=== PATIENT | female | born 1970 | race Caucasian/White ===

== ENCOUNTER 2020-12-03 12:19 | Inpatient (IN) | payer MEDICARE, OTHER ==
[2020-12-03 12:44] LABS: Basophils # (A) 0.1 k/uL (0-0.2); Basophils % (A) 1 %; Eosinophils # (A) 0.1 k/uL (0-0.7); Eosinophils % (A) 2 %; HCT 39.2 % (34.0-46.0); HGB 13.7 gm/dL (11.4-16.0); Lymphocytes # (A) 1.5 k/uL (1.0-4.8); Lymphocytes % (A) 24 %; MCH 29.7 pg (25.0-35.0); MCHC 34.9 g/dL (31.0-37.0); MCV 85.1 fL (80.0-100.0); Monocytes # (A) 0.3 k/uL (0-1.0); Monocytes % (A) 5 %; Neutrophils # (A) 4.3 k/uL (1.3-7.7); Neutrophils % (A) 67 %; Platelet Count 253 k/uL (150-450); RDW 14.1 % (11.5-15.5); WBC 6.4 k/uL (3.8-10.6)
[2020-12-03 12:53] LABS: ALT 13 U/L (4-34); AST 18 U/L (14-36); African American GFR (CKD) >90 (>60 ml/min/1.73 sqM); Albumin 3.7 g/dL (3.5-5.0); Alkaline Phosphatase 77 U/L (38-126); Anion Gap 5 mmol/L; Blood Urea Nitrogen 9 mg/dL (7-17); Calcium 9.2 mg/dL (8.4-10.2); Carbon Dioxide 27 mmol/L (22-30); Chloride 107 mmol/L (98-107); Glucose 84 mg/dL (74-99); Lipase 135 U/L (23-300); Magnesium 1.2 mg/dL (1.6-2.3); Non-African American GFR(CKD) >90 (>60 ml/min/1.73 sqM); Potassium 4.1 mmol/L (3.5-5.1); Sodium 139 mmol/L (137-145); Total Bilirubin 0.3 mg/dL (0.2-1.3); Total Protein 6.2 g/dL (6.3-8.2)
[2020-12-03 13:00] LABS: Partial Thromboplastin Time 24.3 sec (22.0-30.0); Prothrombin Time 10.3 sec (9.0-12.0)
--- NOTE | 2020-12-03 13:05 | XR ---
EXAMINATION TYPE: XR chest 2V DATE OF EXAM: 12/03/2020 COMPARISON: NONE TECHNIQUE: PA and lateral views submitted. HISTORY: Chest pain FINDINGS: Surgical change with on no evidence of cardiomegaly. There is vague density in the right upper lobe l aterally. No pleural effusion or pneumothorax. Arthropathy of the shoulders. Hypertrophic and degener ative change of the spine. IMPRESSION: 1. Vague right upper lobe infiltrate suspected correlate for pneumonia.
--- NOTE | 2020-12-03 13:25 | ED ---
Chest Pain HPI - General Chief Complaint: Chest Pain Stated Complaint: chest pain Source: EMS Mode of arrival: EMS Limitations: no limitations - History of Present Illness Initial Comments: Patient is a 50-year-old female who presents to the emergency department with reported chest pain. Patient has a history of CABG x 4 in 2013 with 5 stents placed afterwards. She also has a history of diabetes and cocaine abuse. Patient reports a heavy cocaine abuse over the past 3 weeks. States that she stopped taking her Plavix and other heart medications. She decided to check herself into rehab and has been at [facility] for the past 5 days. Today the patient had an episode of chest pain for which she was given one of her nitro and the pain resolved. Normally reports to anginal pain once per month. As she was at the facility they did request that she going to the emergency department for evaluation. She arrives and states that her pain is completely resolved. It was described as a chest pressure which went into her left arm. This is typical of her chest pain. She denies any shortness of breath or diaphoresis. 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 She sees Dr. Villanueva out of [facility]. She denies cough, fevers or chills. No ripping or tearing physician or back. No bowel pain. Denies vomiting. No other alleviating, precipitating or modifying factors - Related Data Home Medications Medication Instructions Recorded Confirmed ARIPiprazole [Abilify] 15 mg PO HS@219912/03/20 12/03/20 Acetaminophen [Tylenol] 650 mg PO Q4H PRN 12/03/20 12/03/20 Albuterol Sulfate [Proair Hfa] 2 puff INHALATION RT-Q4H PRN 12/03/20 12/03/20 Aspirin 81 mg PO DAILY@59912/03/20 12/03/20 Atorvastatin [Lipitor] 40 mg PO HS@219912/03/20 12/03/20 Calcium/Magnesium/Zinc 2 tab PO TID PRN 12/03/20 12/03/20 [Dwaqrah-Ijrsuijez-Wrmz Tablet] Clopidogrel Bisulfate [Plavix] 75 mg PO DAILY@59912/03/20 12/03/20 Ferrous Sulfate [Iron (65 MG 325 mg PO DAILY@59912/03/20 12/03/20 Elemental)] Fluticasone Nasal [place] [Flonase 1 spr EA NOSTRIL DAILY PRN 12/03/20 12/03/20 Nasal [place]] Isosorbide Mononitrate ER [Imdur] 30 mg PO DAILY@0600 12/03/20 12/03/20 Losartan [Cozaar] 50 mg PO DAILY@0600 12/03/20 12/03/20 Multivitamins, Thera [Multivitamin 1 tab PO DAILY@0600 12/03/20 12/03/20 (formulary)] Nitroglycerin Sl Tabs [Nitrostat] 0.4 mg SL Q5M PRN 12/03/20 12/03/20 Thiamine [Vitamin B-1] 100 mg PO DAILY@0600 12/03/20 12/03/20 buPROPion HCL [Wellbutrin XL] 150 mg PO DAILY@0600 12/03/20 12/03/20 metFORMIN HCL 1,000 mg PO BID@0600,1700 12/03/20 12/03/20 Allergies Allergy/AdvReac Type Severity Reaction Status Date / Time phenobarbital AdvReac Hyper Verified 12/03/20 13:35 Review of Systems ROS Statement: Those systems with pertinent positive or pertinent negative responses have been documented in the HPI. ROS Other: All systems not noted in ROS Statement are negative. EKG Findings - EKG Comments: EKG Findings:: Chest x-ray demonstrates normal sinus rhythm with a ventricular rate of 82. WA interval 144. QRS 90. QTC of 474. Inverted T-wave in aVL. No acute ST segment elevations Past Medical History Past Medical History: Chest Pain / Angina, Diabetes Mellitus Additional Past Medical History / Comment(s): DM2. History of Any Multi-Drug Resistant Organisms: None Reported Past Surgical History: Coronary Bypass/CABG, Heart Catheterization, Heart Catheterization With Stent, Orthopedic Surgery Additional Past Surgical History / Comment(s): bypass 2013, last stent 2016. right carpal tunnel. Past Psychological History: Anxiety, Bipolar Smoking Status: Current every day smoker Past Alcohol Use History: None Reported Past Drug Use History: None Reported - Past Family History Father Additional Family Medical History / Comment(s): Father had heart "problems". He is . Mother Family Medical History: Coronary Artery Disease (CAD) Additional Family Medical History / Comment(s): Mother during a heart procedure. General Exam Limitations: no limitations General appearance: alert, in no apparent distress Head exam: Present: atraumatic, normocephalic, normal inspection Eye exam: Present: normal appearance, PERRL, EOMI. Absent: scleral icterus, conjunctival injection, periorbital swelling ENT exam: Present: normal exam, mucous membranes moist Neck exam: Present: normal inspection. Absent: tenderness, meningismus, lymphadenopathy Respiratory exam: Present: normal lung sounds bilaterally. Absent: respiratory distress, wheezes, rales, rhonchi, stridor Cardiovascular Exam: Present: regular rate, normal rhythm, normal heart sounds. Absent: systolic murmur, diastolic murmur, rubs, gallop, clicks GI/Abdominal exam: Present: soft, normal bowel sounds. Absent: distended, tende rness, guarding, rebound, rigid Extremities exam: Present: normal inspection, full ROM, normal capillary refill. Absent: tenderness, pedal edema, joint swelling, calf tenderness Back exam: Present: normal inspection Neurological exam: Present: alert, oriented X3, CN II-XII intact Psychiatric exam: Present: normal affect, normal mood Skin exam: Present: warm, dry, intact, normal color. Absent: rash Course Vital Signs 12/03/20 12/03/20 12/03/20 12:21 15:49 16:00 Temperature 98.3 F 97.3 F L Pulse Rate 89 98 Pulse Rate [ 97 Pulse Oximetery ] Respiratory 18 18 16 Rate Blood Pressure 108/88 118/64 Blood Pressure 121/74 [Right Arm] O2 Sat by Pulse 97 98 96 Oximetry Chest Pain MDM - MDM Upon arrival patient is placed in room 27. There are history and physical exam was performed. She is to continuous pulse ox and cardiac monitoring. EKG was performed. Patient is completely symptomatically at this time. Laboratory studies were conducted which do demonstrate an elevated troponin of 0.045. Patient was given an aspirin. I also initiated heparin. Patient has no contraindications to anticogulation. I did recommend admission due to the elevated cardiac enzymes with significant cardiac history. Patient did agree to this. Patient remained pain-free awaiting a bed on the floor Critical Care Time Critical Care Time: Yes Critical Care Time: 32 minutes for initiation of heparin gtt for nstemi Disposition Clinical Impression: Acute non-ST elevation myocardial infarction (NSTEMI), Chest pain, CAD (coronary artery disease), Hx of CABG Disposition: ADMITTED IP TO THIS HOSP Condition: Stable Is patient prescribed a controlled substance at d/c from ED?: No Decision to Admit Reason: Admit from EC Decision Date: 12/03/20 Decision Time: 14:17
[2020-12-03] MEDS ORDERED: ASPIRIN 81 MG PO STA (14:09)
[2020-12-03] MEDS ORDERED: HEPARIN SODIUM 1,000 UN/ML (10ML VL) IV ONE (14:17)
[2020-12-03] MEDS ORDERED: HEPARIN SODIUM 1,000 UN/ML (10ML VL) IV PRN (14:17)
[2020-12-03] MEDS ORDERED: NALOXONE 0.4 MG/ML 1 ML VIAL IV PRN (14:20)
[2020-12-03] MEDS ORDERED: HEPARIN SOD,PORK IN 0.45% NACL 25,000 UNIT in 0.45% NACL 1 250ML.BAG IV SCH (14:30)
[2020-12-03] MEDS ORDERED: ALBUTEROL NEBULIZED 2.5 MG/3 ML INHALATION PRN (15:38)
[2020-12-03] MEDS ORDERED: ACETAMINOPHEN TAB 325 MG TAB PO PRN (15:38)
[2020-12-03] MEDS ORDERED: FLUTICASONE 50MCG/SPRAY NASAL 16GM EA NOSTRIL PRN (15:38)
--- NOTE | 2020-12-03 15:44 | P.HPIM ---
History of Present Illness H&P Date: 12/03/20 Chief Complaint: Heaviness in the chest This is a 50-year-old female with past medical history noted below significant for coronary artery disease with prior stent placement 2 years ago that presented to the emergency room from [place] with chest heaviness. Patient said that her symptoms started all of a sudden when she was walking around. She said that he was not severe chest pain but only tightness. She denies any shortness of breath or palpitation. No nausea or dizziness. Patient was brought into the emergency room a 12-lead EKG showed no acute ischemic changes. Initial troponin was slightly elevated so patient was started on IV heparin drip and admitted to the hospital for observation. Patient admits that she was using crack cocaine up until 5 days ago prior to her going to [place]. She missed a lot of her medications in the past 3 weeks. She said now she understands the risk of cocaine and would like to get clean. She reported having a heart attack approximately 3 years ago that was treated at [facility] in [place] and underwent 5 stent placements. She continued to smoke cigarettes. Review of Systems Review of system: 14 points review of systems were obtained and were negative except to what were mentioned in the HPI. Past Medical History Past Medical History: Chest Pain / Angina, Diabetes Mellitus Additional Past Medical History / Comment(s): DM2. History of Any Multi-Drug Resistant Organisms: None Reported Past Surgical History: Coronary Bypass/CABG, Heart Catheterization, Heart Catheterization With Stent, Orthopedic Surgery Additional Past Surgical History / Comment(s): bypass 2013, last stent 2016. right carpal tunnel. Past Psychological History: Anxiety, Bipolar Smoking Status: Current every day smoker Past Alcohol Use History: None Reported Past Drug Use History: None Reported Medications and Allergies Home Medications Medication Instructions Recorded Confirmed Type ARIPiprazole [Abilify] 15 mg PO HS@0 12/03/20 12/03/20 History Acetaminophen [Tylenol] 650 mg PO Q4H PRN 12/03/20 12/03/20 History Albuterol Sulfate [Proair Hfa] 2 puff INHALATION RT-Q4H PRN 12/03/20 12/03/20 Hi story Aspirin 81 mg PO DAILY@0600 12/03/20 12/03/20 History Atorvastatin [Lipitor] 40 mg PO HS@0 12/03/20 12/03/20 History Calcium/Magnesium/Zinc 2 tab PO TID PRN 12/03/20 12/03/20 History [Bhyjmpm-Mjhskrbgr-Xyex Tablet] Chlorpheniramine Maleate 4 mg PO Q4H PRN 12/03/20 12/03/20 History [Chlor-Trimeton] Clopidogrel Bisulfate [Plavix] 75 mg PO DAILY@0600 12/03/20 12/03/20 History Ferrous Sulfate [Feosol] 325 mg PO DAILY@59912/03/20 12/03/20 History Fluticasone Nasal [place] [Flonase 1 spr EA NOSTRIL DAILY PRN 12/03/20 12/03/20 History Nasal [place]] Ibuprofen [Motrin] 600 mg PO Q6H PRN 12/03/20 12/03/20 History Isosorbide Mononitrate ER [Imdur] 30 mg PO DAILY@0612/03/20 12/03/20 History Loratadine [Claritin] 10 mg PO DAILY@0612/03/20 12/03/20 History Losartan [Cozaar] 50 mg PO DAILY@0612/03/20 12/03/20 History Multivitamins, Thera [Multivitamin 1 tab PO DAILY@0612/03/20 12/03/20 History (formulary)] Nitroglycerin Sl Tabs [Nitrostat] 0.4 mg SL Q5M PRN 12/03/20 12/03/20 History Thiamine [Vitamin B-1] 100 mg PO DAILY@0600 12/03/20 12/03/20 History Venlafaxine HCl [Effexor XR] 150 mg PO DAILY@0612/03/20 12/03/20 History buPROPion HCL [Wellbutrin XL] 150 mg PO DAILY@0600 12/03/20 12/03/20 History metFORMIN HCL 1,000 mg PO BID@0600,1700 12/03/20 12/03/20 History traZODone HCL 100 mg PO HS@2200 12/03/20 12/03/20 History Allergies Allergy/AdvReac Type Severity Reaction Status Date / Time phenobarbital AdvReac Hyper Verified 12/03/20 13:35 Physical Exam Vitals: Vital Signs Temp Pulse Resp BP Pulse Ox 12/03/20 12:21 98.3 F 89 18 108/88 97 Intake and Output 12/03/20 12/03/20 12/03/20 06:59 14:59 22:59 Other: Weight 72.575 kg General: The patient is awake and alert, in no distress Eye: there is normal conjunctiva bilaterally. Neck: The neck is supple, there is no JVD. Cardiovascular: Normal S1-S2, no S3-S4, no murmurs. Respiratory: Lungs clear to auscultation bilaterally Gastrointestinal: Abdomen is soft, nontender Musculoskeletal: There is no pedal edema. Neurological:. Speech is normal. Skin: Skin is warm and dry Results CBC & Chem 7: 12/03/20 12:36 12/03/20 12:36 Labs: Abnormal Lab Results - Last 24 Hours (Table) 12/03/20 12/03/20 Range/Units 12:36 12:36 Magnesium 1.2 L (1.6-2.3) mg/dL Troponin I 0.045 H* (0.000-0.034) ng/mL Total Protein 6.2 L (6.3-8.2) g/dL Assessment and Plan Assessment: 1. Non-ST elevation SD, started on IV heparin drip in the ER. Continue dual antiplatelet therapy with aspirin and Plavix. Awaiting cardiology evaluation. Telemetry monitoring and serial troponin. 2. Cocaine abuse: Counseled extensively to quit. Patient understands the r isks. 3. Chronic medical problems, coronary artery disease with prior stent placement, essential hypertension, type 2 diabetes, hyperlipidemia, underlying depression
[2020-12-03 17:03] LABS: Glucose,Whole Blood 119 mg/dL (75-99)
[2020-12-03] MEDS: INSULIN ASPART (NovoLOG) 100 UNIT/ML VIAL SQ SCH ×2 (17:28→20:01)
[2020-12-03 19:57] LABS: Glucose,Whole Blood 136 mg/dL (75-99)
[2020-12-03] MEDS: MAGNESIUM SULFATE-D5W PMX 1 GM in DEXTROSE/WATER 1 100ML.BAG IVPB SCH ×2 (20:01→21:30)
[2020-12-03] MEDS ORDERED: traZODone HCL 100 MG TAB PO SCH (22:00)
[2020-12-03] MEDS ORDERED: ATORVASTATIN 40 MG TAB PO SCH (22:00)
[2020-12-03] MEDS ORDERED: ARIPiprazole 15 MG TAB PO SCH (22:00)
[2020-12-04 00:14] VITALS: RESP 16
[2020-12-04 02:00] LABS: Basophils # (A) 0.1 k/uL (0-0.2); Basophils % (A) 1 %; Eosinophils # (A) 0.2 k/uL (0-0.7); Eosinophils % (A) 3 %; HGB 13.6 gm/dL (11.4-16.0); Lymphocytes # (A) 1.9 k/uL (1.0-4.8); Lymphocytes % (A) 38 %; MCH 29.6 pg (25.0-35.0); MCHC 34.9 g/dL (31.0-37.0); Monocytes # (A) 0.3 k/uL (0-1.0); Monocytes % (A) 5 %; Neutrophils # (A) 2.6 k/uL (1.3-7.7); Neutrophils % (A) 52 %; Platelet Count 222 k/uL (150-450); RBC 4.59 m/uL (3.80-5.40)
[2020-12-04] MEDS ORDERED: THIAMINE 100 MG TAB PO SCH (06:00)
[2020-12-04] MEDS ORDERED: ISOSORBIDE MONONITRATE ER 30 MG TAB.ER.24H PO SCH (06:00)
[2020-12-04] MEDS ORDERED: FERROUS SULFATE 325 MG TAB PO SCH (06:00)
[2020-12-04] MEDS ORDERED: CLOPIDOGREL 75 MG TAB PO SCH (06:00)
[2020-12-04] MEDS ORDERED: LOSARTAN 50 MG TAB PO SCH (06:00)
[2020-12-04] MEDS ORDERED: VENLAFAXINE HCL ER 150 MG CAP PO SCH (06:00)
[2020-12-04] MEDS ORDERED: buPROPion XL 150 MG TAB.ER.24H PO SCH (06:00)
[2020-12-04 06:10] LABS: Glucose,Whole Blood 134 mg/dL (75-99)
[2020-12-04] MEDS: INSULIN ASPART (NovoLOG) 100 UNIT/ML VIAL SQ SCH (06:23)
[2020-12-04 06:26] LABS: African American GFR (CKD) >90 (>60 ml/min/1.73 sqM); Anion Gap 4 mmol/L; Blood Urea Nitrogen 8 mg/dL (7-17); Carbon Dioxide 27 mmol/L (22-30); Chloride 106 mmol/L (98-107); Glucose 135 mg/dL (74-99); Magnesium 1.7 mg/dL (1.6-2.3); Non-African American GFR(CKD) >90 (>60 ml/min/1.73 sqM); Potassium 4.2 mmol/L (3.5-5.1); Sodium 137 mmol/L (137-145)
[2020-12-04 06:37] LABS: INR 0.9 (<1.2); Partial Thromboplastin Time 41.5 sec (22.0-30.0)
[2020-12-04 07:43] VITALS: TEMP 97.6
[2020-12-04] MEDS ORDERED: ASPIRIN 81 MG PO SCH (09:00)
--- NOTE | 2020-12-04 11:47 | P.DS ---
Providers Date of admission: 12/04/20 10:35 Expected date of discharge: 12/04/20 Attending physician: Fer Shannon Consults: 12/03/20 14:21 Consult Physician Urgent Consulting Provider: [facility] Consult Reason/Comments: acute chest pain, nstemi, hx cad with cabg Do you want consulting provider notified?: Yes Primary care physician: Physician Nonstaff Hospital Course: This is a 50-year-old female with past medical history detailed in her chart significant for coronary artery disease with prior stent placement, essential hypertension, type 2 diabetes, and hyperlipidemia. Patient presented to the emergency room with chest heaviness. Patient uses crack cocaine and last time of use was 5 days prior to her presentation. She was at [facility] for rehab when she had an episode of chest heaviness and was sent to the ER for further evaluation. Twelve-lead EKG in the ER showed no acute ischemic changes. Initial troponin was 0.41 patient was treated as a non-STEMI with IV heparin. She is on the left antiplatelet therapy at home. Serial troponin remained stable. She was seen and evaluated by cardiology. Her chest pain was thought to be atypical in nature. Advised to continue aggressive medical management. Counseled extensively to quit cocaine use. Cleared by cardiology for discharge. Patient will be discharged back to [facility] in a stable condition. For further details about this hospitalization please refer to the electronic chart. Patient Condition at Discharge: Stable Plan - Discharge Summary Discharge Rx Participant: No New Discharge Prescriptions: Continue Albuterol Sulfate [Proair Hfa] 2 puff INHALATION RT-Q4H PRN PRN Reason: Shortness Of Breath Nitroglycerin Sl Tabs [Nitrostat] 0.4 mg SL Q5M PRN PRN Reason: Chest Pain Losartan [Cozaar] 50 mg PO DAILY@0600 Aspirin 81 mg PO DAILY@0600 Atorvastatin [Lipitor] 40 mg PO HS@2200 ARIPiprazole [Abilify] 15 mg PO HS@2200 Ferrous Sulfate [Iron (65 MG Elemental)] 325 mg PO DAILY@0600 Multivitamins, Thera [Multivitamin (formulary)] 1 tab PO DAILY@0600 Fluticasone Nasal [place] [Flonase Nasal [place]] 1 spr EA NOSTRIL DAILY PRN PRN Reason: Allergy Symptoms Calcium/Magnesium/Zinc [Nkjruaf-Jpmrbfxhl-Flqn Tablet] 2 tab PO TID PRN PRN Reason: Muscle Cramps Acetaminophen [Tylenol] 650 mg PO Q4H PRN PRN Reason: Fever And/ Or Pain Isosorbide Mononitrate ER [Imdur] 30 mg PO DAILY@0600 Clopidogrel Bisulfate [Plavix] 75 mg PO DAILY@0600 metFORMIN HCL 1,000 mg PO BID@0600,1700 buPROPion HCL [Wellbutrin XL] 150 mg PO DAILY@0600 Thiamine [Vitamin B-1] 100 mg PO DAILY@0600 Discontinued Ibuprofen [Motrin] 600 mg PO Q6H PRN PRN Reason: Fever And/ Or Pain Chlorpheniramine Maleate [Chlor-Trimeton] 4 mg PO Q4H PRN PRN Reason: Allergy Symptoms Loratadine [Claritin] 10 mg PO DAILY@0600 traZODone HCL 100 mg PO HS@220 Venlafaxine HCl [Effexor XR] 150 mg PO DAILY@0600 Discharge Medication List ARIPiprazole [Abilify] 15 mg PO HS@219912/03/20 [History] Acetaminophen [Tylenol] 650 mg PO Q4H PRN 12/03/20 [History] Albuterol Sulfate [Proair Hfa] 2 puff INHALATION RT-Q4H PRN 12/03/20 [History] Aspirin 81 mg PO DAILY@59912/03/20 [History] Atorvastatin [Lipitor] 40 mg PO HS@219912/03/20 [History] Calcium/Magnesium/Zinc [Zzvlqbz-Jttpisslr-Ybxf Tablet] 2 tab PO TID PRN 12/03/20 [History] Clopidogrel Bisulfate [Plavix] 75 mg PO DAILY@59912/03/20 [History] Ferrous Sulfate [Iron (65 MG Elemental)] 325 mg PO DAILY@59912/03/20 [History] Fluticasone Nasal [place] [Flonase Nasal [place]] 1 spr EA NOSTRIL DAILY PRN 12/03/20 [History] Isosorbide Mononitrate ER [Imdur] 30 mg PO DAILY@59912/03/20 [History] Losartan [Cozaar] 50 mg PO DAILY@0612/03/20 [History] Multivitamins, Thera [Multivitamin (formulary)] 1 tab PO DAILY@59912/03/20 [H istory] Nitroglycerin Sl Tabs [Nitrostat] 0.4 mg SL Q5M PRN 12/03/20 [History] Thiamine [Vitamin B-1] 100 mg PO DAILY@0600 12/03/20 [History] buPROPion HCL [Wellbutrin XL] 150 mg PO DAILY@0600 12/03/20 [History] metFORMIN HCL 1,000 mg PO BID@0600,1700 12/03/20 [History] Follow up Appointment(s)/Referral(s): Nonstaff,Physician [Primary Care Provider] - 1-2 days Activity/Diet/Wound Care/Special Instructions: Please call [facility] for transport back at d/c . Discharge Disposition: HOME SELF-CARE
[2020-12-04 12:16] LABS: Glucose,Whole Blood 115 mg/dL (75-99)
[2020-12-04 13:04] VITALS: BP 136/75; PULSE 90
--- NOTE | 2020-12-04 14:58 | P.CRDCN ---
History of Present Illness History of present illness: This is a 50-year-old female with past medical history noted below significant for two myocardial infarctions, coronary artery disease with prior 4 vessel CABG in 2014 and with prior 5 stents placements in 2017, Type 2 Diabetes, hypertension, hyperlipidemia, prior substance abuse (cocaine), current every day smoker, smokes 1 pack per day. She follows with Dr. Ellsworth in [place]. We are being consulted for chest pain and elevated troponin. She presents to the emergency room from [place] with chest heaviness. Symptoms started yesterday started at 4pm. Exertional. Radiating to her left arm. She was walking up the stairs. She denies shortness of breath, nausea, palpitations, lower exremity edema, symptoms of orthopnea or PND. She has a family history of cardiac disease mother of an [place] in her 60s, and father of an [place] at age 79. DIAGNOSTICS EKG reveals normal sinus rhythm heart rate 82 T wave inversions in aVL and V2, no significant STT wave abnormalities Telemetry tracings indicate sinus mechanism Chest xray right upper lobe infiltrate Laboratory reviewed, troponins 0.43, CBC unremarkable, sodium 137, potassium 4.2, serum creatinine 0.5 to Current cardiac medications include losartan 50 mg daily, Imdur 30 mg daily, Plavix 75 mg daily, atorvastatin 40 mg nightly, aspirin 81 mg daily REVIEW OF SYSTEMS At the time of my exam: CONSTITUTIONAL: Denies fever or chills. CARDIOVASCULAR: Positive chest pain Denies chest pain,orthopnea, PND or palpitations. RESPIRATORY: Denies cough. GASTROINTESTINAL: Denies abdominal pain, diarrhea, constipation, nausea or vom iting. MUSCULOSKELETAL: Denies myalgias. NEUROLOGIC: Denies numbness, tingling, headacbe or weakness. ENDOCRINE: Denies fatigue, weight change, polydipsia or polyurina. GENITOURINARY: Denies burning, hematuria or urgency with micturation. HEMATOLOGIC: Denies history of anemia or bleeding. PHYSICAL EXAMINATION Blood pressure 143/82 heart rate 98 afebrile and maintaining oxygen saturation on []. CONSTITUTIONAL: No apparent distress. HEENT: Head is normocephalic. Pupils are equal, round. Sclerae anicteric. Mucous membranes of the mouth are moist. No JVD. No carotid bruit. CHEST EXAMINATION: Lungs are clear to auscultation. No chest wall tenderness is noted on palpation or with deep breathing. HEART EXAMINATION: Regular rate and rhythm. S1, S2 heard. No murmurs, gallops or rub. ABDOMEN: Soft, nontender. Positive bowel sounds. EXTREMITIES: 2+ peripheral pulses, no lower extremity edema and no calf tenderness. NEUROLOGIC EXAMINATION: Patient is awake, alert and oriented x3. ASSESSMENT Chest pain, atypical Elevated troponin, not indicative of acute coroanry syndrome. Troponins are 0.04 x 3, patient has no more chest discomfort. 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 Patient was seen and examined. Past Medical History Past Medical History: Coronary Artery Disease (CAD), Chest Pain / Angina, Diabetes Mellitus Additional Past Medical History / Comment(s): NIDDM type II History of Any Multi-Drug Resistant Organisms: None Reported Past Surgical History: Coronary Bypass/CABG, Heart Catheterization, Heart Catheterization With Stent, Orthopedic Surgery Additional Past Surgical History / Comment(s): 4 vessel bypass 2013, PCI with last stent 2016. right carpal tunnel. Past Anesthesia/Blood Transfusion Reactions: No Reported Reaction Date of Last Stent Placement:: 2016 Smoking Status: Current every day smoker - Past Family History Father Additional Family Medical History / Comment(s): Father had heart "problems". He is . Mother Family Medical History: Coronary Artery Disease (CAD) Additional Family Medical History / Comment(s): Mother during a heart procedure. Medications and Allergies Home Medications Medication Instructions Recorded Confirmed Type ARIPiprazole [Abilify] 15 mg PO HS@219912/03/20 12/03/20 History Acetaminophen [Tylenol] 650 mg PO Q4H PRN 12/03/20 12/03/20 History Albuterol Sulfate [Proair Hfa] 2 puff INHALATION RT-Q4H PRN 12/03/20 12/03/20 History Aspirin 81 mg PO DAILY@0600 12/03/20 12/03/20 History Atorvastatin [Lipitor] 40 mg PO HS@219912/03/2021 History Calcium/Magnesium/Zinc 2 tab PO TID PRN 12/03/20 12/03/20 History [Jwzdvna-Csvhopzrk-Ymbf Tablet] Clopidogrel Bisulfate [Plavix] 75 mg PO DAILY@0600 12/03/20 12/03/20 History Ferrous Sulfate [Iron (65 MG 325 mg PO DAILY@0600 12/03/20 12/03/20 History Elemental)] Fluticasone Nasal [place] [Flonase 1 spr EA NOSTRIL DAILY PRN 12/03/20 12/03/20 History Nasal [place]] Isosorbide Mononitrate ER [Imdur] 30 mg PO DAILY@0600 12/03/20 12/03/20 History Losartan [Cozaar] 50 mg PO DAILY@0600 12/03/20 12/03/20 History Multivitamins, Thera [Multivitamin 1 tab PO DAILY@0600 12/03/20 12/03/20 History (formulary)] Nitroglycerin Sl Tabs [Nitrostat] 0.4 mg SL Q5M PRN 12/03/20 12/03/20 History Thiamine [Vitamin B-1] 100 mg PO DAILY@0600 12/03/20 12/03/20 History buPROPion HCL [Wellbutrin XL] 150 mg PO DAILY@0600 12/03/20 12/03/20 History metFORMIN HCL 1,000 mg PO BID@0600,1700 12/03/20 12/03/20 History Allergies Allergy/AdvReac Type Severity Reaction Status Date / Time phenobarbital AdvReac Hyper Verified 12/03/20 13:35 Physical Exam Vitals: Vital Signs Temp Pulse Pulse Resp BP BP Pulse Ox 12/04/20 04:00 80 16 143/82 98 12/04/20 00:00 96 16 151/91 97 12/03/20 20:00 97.8 F 112 H 18 160/65 95 12/03/20 16:00 97.3 F L 97 16 121/74 96 12/03/20 15:49 98 18 118/64 98 12/03/20 12:21 98.3 F 89 18 108/88 97 Intake and Output 12/03/20 12/04/20 12/04/20 22:59 06:59 14:59 Intake Total 299.947 65.679 Balance 299.947 65.679 Intake: Intake, IV Titration 59.947 65.679 Amount Heparin Sod,Pork in 0.45% 59.947 65.679 NaCl 25,000 unit In 0.45 % NaCl 1 250ml.bag @ 12 UNITS/KG/HR 8.709 mls/hr IV .Q24H [facility] Rx#: [id number] Oral 240 Other: Weight 72.575 kg 89.5 kg Results 12/04/20 01:49 12/04/20 05:34 Cardiac Enzymes 12/03/20 12/03/20 12/03/20 Range/Units 12:36 12:36 15:51 AST 18 (14-36) U/L Troponin I 0.045 H* 0.045 H* (0.000-0.034) ng/mL 12/03/20 Range/Units 18:25 AST (14-36) U/L Troponin I 0.041 H* (0.000-0.034) ng/mL Coagulation 12/03/20 12/03/20 12/04/20 Range/Units 12:36 20:42 01:49 PT 10.3 (9.0-12.0) sec APTT 24.3 30.8 H 37.7 H (22.0-30.0) sec 12/04/20 Range/Units 05:34 PT 10.0 (9.0-12.0) sec APTT 41.5 H (22.0-30.0) sec CBC 12/03/20 12/04/20 Range/Units 12:36 01:49 WBC 6.4 5.0 (3.8-10.6) k/uL RBC 4.60 4.59 (3.80-5.40) m/uL Hgb 13.7 13.6 (11.4-16.0) gm/dL Hct 39.2 39.0 (34.0-46.0) % Plt Count 253 222 (150-450) k/uL Comprehensive Metabolic Panel 12/03/20 12/04/20 Range/Units 12:36 05:34 Sodium 139 137 (137-145) mmol/L Potassium 4.1 4.2 (3.5-5.1) mmol/L Chloride 107 106 (98-107) mmol/L Carbon Dioxide 27 27 (22-30) mmol/L BUN 9 8 (7-17) mg/dL Creatinine 0.60 0.52 (0.52-1.04) mg/dL Glucose 84 135 H (74-99) mg/dL Calcium 9.2 9.0 (8.4-10.2) mg/dL AST 18 (14-36) U/L ALT 13 (4-34) U/L Alkaline Phosphatase 77 (38-126) U/L Total Protein 6.2 L (6.3-8.2) g/dL Albumin 3.7 (3.5-5.0) g/dL Current Medications Generic Name Dose Route Start Last Admin Trade Name Freq PRN Reason Stop Dose Admin Acetaminophen 650 mg 12/03/20 15:38 Acetaminophen Tab 325 Mg Tab PO Q4H PRN Fever and/ or Pain Albuterol Sulfate 2.5 mg 12/03/20 15:38 Albuterol Nebulized 2.5 Mg/3 Ml INHALATION RT-Q4H PRN Shortness Of Breath Aripiprazole 15 mg 12/03/20 22:00 12/03/20 20:01 Aripiprazole 15 Mg Tab PO 15 mg HS@2200 SHANNA Administration Aspirin 81 mg 12/04/20 09:00 Aspirin 81 Mg PO DAILY [facility] Atorvastatin Calcium 40 mg 12/03/20 22:00 12/03/20 20:01 Atorvastatin 40 Mg Tab PO 40 mg HS@2200 SHANNA Administration Bupropion HCl 150 mg 12/04/20 06:00 12/04/20 06:23 Bupropion Xl 150 Mg Tab.Er.24h PO 150 mg DAILY@0600 SHANNA Administration Clopidogrel Bisulfate 75 mg 12/04/20 06:00 12/04/20 06:23 Clopidogrel 75 Mg Tab PO 75 mg DAILY@0600 SHANNA Administration Ferrous Sulfate 325 mg 12/04/20 06:00 12/04/20 06:23 Ferrous Sulfate 325 Mg Tab PO 325 mg DAILY@0600 [facility] Administration Fluticasone Propionate 1 spray 12/03/20 15:38 Fluticasone 50mcg/[place] Nasal 16gm EA NOSTRIL DAILY PRN Allergy Symptoms Heparin Sodium (Porcine) 0 unit 12/03/20 14:17 12/03/20 21:31 Heparin Sodium 1,000 Un/Ml (10ml Vl) IV 3,600 unit PER PROTOCOL PRN Administration Low PTT Protocol Heparin Sodium/Sodium Chloride 250 mls @ 8.709 mls/hr 12/03/20 14:30 12/04/20 03:26 25,000 unit/ Sodium Chloride IV 17 units/kg/hr .Q24H SHANNA 12.338 mls/hr Titration Protocol 12 UNITS/KG/HR Insulin Aspart 0 unit 12/03/20 17:30 12/04/20 06:23 Insulin Aspart (Novolog) 100 Unit/Ml Vial SQ 1 unit ACHS SHANNA Administration Protocol Isosorbide Mononitrate 30 mg 12/04/20 06:00 12/04/20 06:23 Isosorbide Mononitrate Er 30 Mg Tab.Er.24h PO 30 mg DAILY@0600 SHANNA Administration Losartan Potassium 50 mg 12/04/20 06:00 12/04/20 06:23 Losartan 50 Mg Tab PO 50 mg DAILY@0600 SHANNA Administration Naloxone HCl 0.2 mg 12/03/20 14:20 Naloxone 0.4 Mg/Ml 1 Ml Vial IV Q2M PRN Opioid Reversal Thiamine HCl 100 mg 12/04/20 06:00 12/04/20 06:23 Thiamine 100 Mg Tab PO 100 mg DAILY@0600 SHANNA Administration Intake and Output 12/03/20 12/04/20 12/04/20 22:59 06:59 14:59 Intake Total 299.947 65.679 Balance 299.947 65.679 Intake: Intake, IV Titration 59.947 65.679 Amount Heparin Sod,Pork in 0.45% 59.947 65.679 NaCl 25,000 unit In 0.45 % NaCl 1 250ml.bag @ 12 UNITS/KG/HR 8.709 mls/hr IV .Q24H [facility] Rx#: [id number] Oral 240 Other: Weight 72.575 kg 89.5 kg 12/04/20 01:49 12/04/20 05:34
== END 2020-12-04 14:36 | DRG 313 ==
LOC: EC 12:19 → SUPCPDRO 12:19 → 3SCARD 14:20 → OBSVTOIN 12-04 10:35
PROVIDERS: ADMIT Internal Medicine; ATTEND Internal Medicine
DX: R07.89 Other chest pain (principal); E11.9 Type 2 diabetes mellitus without complications; I25.119 Atherosclerotic heart disease of native coronary artery with unspecified angina pectoris; F14.10 Cocaine abuse, uncomplicated; F31.9 Bipolar disorder, unspecified; Z20.822 Contact with and (suspected) exposure to COVID-19; E78.5 Hyperlipidemia, unspecified; I10 Essential (primary) hypertension; I25.2 Old myocardial infarction; F41.9 Anxiety disorder, unspecified; F17.210 Nicotine dependence, cigarettes, uncomplicated; Z79.82 Long term (current) use of aspirin; Z79.02 Long term (current) use of antithrombotics/antiplatelets; Z79.84 Long term (current) use of oral hypoglycemic drugs; Z79.899 Other long term (current) drug therapy; Z71.51 Drug abuse counseling and surveillance of drug abuser; Z87.39 Personal history of other diseases of the musculoskeletal system and connective tissue; Z95.1 Presence of aortocoronary bypass graft; Z95.5 Presence of coronary angioplasty implant and graft; Z98.890 Other specified postprocedural states; Z88.8 Allergy status to other drugs, medicaments and biological substances; Z82.49 Family history of ischemic heart disease and other diseases of the circulatory system
CPT/HCPCS: 36415; 71046; 80048; 80053; 83690; 83735; 83880; 84484; 85025; 85610; 85730; 87636; 93005; 99291

== ENCOUNTER 2022-12-07 09:39 | Observation (INO) | payer MEDICARE, OTHER ==
[2022-12-07 10:00] LABS: Glucose,Whole Blood 142 mg/dL (70-110)
[2022-12-07] MEDS ORDERED: ASPIRIN 81 MG PO STA (10:05)
--- NOTE | 2022-12-07 10:07 | ED ---
General Adult HPI - General Chief complaint: Chest Pain Stated complaint: Chest Pain Time Seen by Provider: 12/07/22 09:50 Source: patient, EMS, RN notes reviewed Mode of arrival: EMS Limitations: no limitations - History of Present Illness Initial comments: Patient is a pleasant 52-year-old female presenting to the emergency department with concerns with chest discomfort. Onset of symptoms was around 745 this morning. Patient was doing a light walking at the time. Patient has ache in her chest that did radiate towards the jaw and left arm. Patient states symptoms resolved with the second nitroglycerin. Patient does have history of similar symptoms previously associated with previous cardiac disease. Patient has had 5 previous stent and bypass. Patient did have associated nausea, diaphoresis, and dyspnea that all resolved. Patient is near symptom-free at this time. No leg pain or leg swelling. - Related Data Home Medications Medication Instructions Recorded Confirmed Acetaminophen [Tylenol] 650 mg PO Q4H PRN 12/03/20 12/07/22 Aspirin 81 mg PO DAILY 12/03/20 12/07/22 Atorvastatin [Lipitor] 40 mg PO HS 12/03/20 12/07/22 Clopidogrel Bisulfate [Plavix] 75 mg PO DAILY 12/03/20 12/07/22 Isosorbide Mononitrate ER [Imdur] 30 mg PO DAILY 12/03/20 12/07/22 Nitroglycerin Sl Tabs [Nitrostat] 0.4 mg SL Q5M PRN 12/03/20 12/07/22 metFORMIN HCL [Glucophage] 1,000 mg PO BID 12/03/20 12/07/22 Metoprolol Tartrate [Lopressor] 25 mg PO TID 09/22/22 12/07/22 Venlafaxine HCl [Effexor XR] 150 mg PO DAILY 09/22/22 12/07/22 busPIRone HCl [Buspar] 10 mg PO TID 09/22/22 12/07/22 Benzonatate [Tessalon Perles] 100 mg PO TID PRN 12/07/22 12/07/22 ondansetron HCL [Zofran] 8 mg PO Q6H PRN 12/07/22 12/07/22 traZODone HCL [Desyrel] 200 mg PO HS PRN 12/07/22 12/07/22 Allergies Allergy/AdvReac Type Severity Reaction Status Date / Time phenobarbital AdvReac Hyper Verified 12/07/22 10:38 Review of Systems ROS Statement: Those systems with pertinent positive or pertinent negative responses have been documented in the HPI. ROS Other: All systems not noted in ROS Statement are negative. Constitutional: Denies: fever Eyes: Denies: eye pain ENT: Denies: ear pain Respiratory: Reports: as per HPI. Denies: cough Cardiovascular: Reports: as per HPI, chest pain Endocrine: Denies: fatigue Gastrointestinal: Denies: abdominal pain Genitourinary: Denies: dysuria Musculoskeletal: Denies: back pain Skin: Denies: rash Neurological: Denies: weakness Past Medical History Past Medical History: Chest Pain / Angina, Diabetes Mellitus, Hypertension, Myocardial Infarction (MT) Additional Past Medical History / Comment(s): DM2. History of Any Multi-Drug Resistant Organisms: None Reported Past Surgical History: Coronary Bypass/CABG, Heart Catheterization, Heart Catheterization With Stent, Orthopedic Surgery Additional Past Surgical History / Comment(s): bypass 2013, last stent 2016. right carpal tunnel. Past Anesthesia/Blood Transfusion Reactions: No Reported Reaction Date of Last Stent Placement:: 2016 Past Psychological History: Anxiety, Bipolar, Depression Smoking Status: Current every day smoker Past Alcohol Use History: None Reported Past Drug Use History: Cocaine - Past Family History Father Additional Family Medical History / Comment(s): Father had heart "problems". He is . Mother Family Medical History: Coronary Artery Disease (CAD) Additional Family Medical History / Comment(s): Mother during a heart procedure. General Exam Limitations: no limitations General appearance: alert, in no apparent distress Head exam: Present: normocephalic Eye exam: Present: normal appearance Neck exam: Present: normal inspection Respiratory exam: Present: normal lung sounds bilaterally Cardiovascular Exam: Present: regular rate, normal rhythm Expanded Peripheral pulses: 2+: Radial (R), Radial (L), Dorsalis Pedis (R), Dorsalis Pedis (L) GI/Abdominal exam: Present: soft. Absent: tenderness Extremities exam: Present: normal inspection. Absent: pedal edema, calf tenderness Neurological exam: Present: alert Psychiatric exam: Present: normal affect, normal mood Skin exam: Present: normal color Course Vital Signs 12/07/22 12/07/22 12/07/22 09:49 10:04 10:08 Temperature 98.1 F Pulse Rate 68 62 Pulse Rate [ 66 Shellfish Processing Machine Tender ] Respiratory 20 16 Rate Blood Pressure 111/78 122/66 O2 Sat by Pulse 98 96 Oximetry 12/07/22 11:20 Temperature Pulse Rate 82 Pulse Rate [ Shellfish Processing Machine Tender ] Respiratory 16 Rate Blood Pressure 121/97 O2 Sat by Pulse 97 Oximetry EKG Findings - EKG Results: EKG: interpreted by ERMD (Left axis.), sinus rhythm, normal QRS, normal ST/T Medical Decision Making - Medical Decision Making Was pt. sent in by a medical professional or institution (, [facility], PROTECTIVE CLOTHING ISSUER, urgent care, hospital, or shelter...) When possible be specific @ -No Did you speak to anyone other than the patient for history (EMS, parent, family, police, friend...)? What history was obtained from this source @ -No Did you review nursing and triage notes (agree or disagree)? Why? @ -I reviewed and agree with nursing and triage notes Were old charts reviewed (outside hosp., previous admission, EMS record, old EKG, old radiological studies, urgent care reports/EKG's, shelter records)? Report findings @ -No old charts were reviewed Differential Diagnosis (chest pain, altered mental status, abdominal pain women, abdominal pain men, vaginal bleeding, weakness, fever, dyspnea, syncope, headache, dizziness, GI bleed, back pain, seizure, CVA, palpatations, mental health)? @ -Differential Chest Pain: Stable Angina, Unstable Angina, STEMI, NSTEMI Aortic Dissection, Pneumothorax, Musculoskeletal, Esophageal Spasm GERD, Cholecystitis, Pancreatitis, Zoster, this is not meant to be an all-inclusive list. EKG interpreted by me (3pts min.). @ -As above X-rays interpreted by me (1pt min.). @ -Chest x-ray shows no acute process CT interpreted by me (1pt min.). @ -None done U/S interpreted by me (1pt. min.). @ -None done What testing was considered but not performed or refused? (CT, X-rays, U/S, labs)? Why? @ -None What meds were considered but not given or refused? Why? @ -None Did you discuss the management of the patient with other professionals ( professionals i.e. , PA, PROTECTIVE CLOTHING ISSUER, lab, RT, psych nurse, social media designer, board certified orthodontist, teacher, credit risk officer, telephonic nurse case manager)? Give summary @ -I did discuss case with [facility] hospitalist, Dr. romero who will admit covering for hospital call Was smoking cessation discussed for >3mins.? @ -No Was critical care preformed (if so, how long)? @ -No Were there social determinants of health that impacted care today? How? (Homelessness, low income, unemployed, alcoholism, drug addiction, alonzo sportation, low edu. Level, literacy, decrease access to med. care, [facility], rehab)? @ -No Was there de-escalation of care discussed even if they declined (Discuss DNR or withdrawal of care, Hospice)? DNR status @ -No What co-morbidities impacted this encounter? (DM, HTN, Smoking, COPD, CAD, Cancer, CVA, ARF, Chemo, Hep., AIDS, mental health diagnosis, sleep apnea, morbid obesity)? @ -Patient has history of coronary artery disease Was patient admitted / discharged? Hospital course, mention meds given and route, prescriptions, significant lab abnormalities, going to OR and other pert inent info. @ -Patient reevaluated and feels even further better. Patient is updated on results and plan. Patient be admitted for repeat testing and cardiac evaluation. Undiagnosed new problem with uncertain prognosis? @ -No Drug Therapy requiring intensive monitoring for toxicity (Heparin, Nitro, Insulin, Cardizem)? @ -No Were any procedures done? @ -No Diagnosis/symptom? @ -Chest pain Acute, or Chronic, or Acute on Chronic? @ -Acute Uncomplicated (without systemic symptoms) or Complicated (systemic symptoms)? @ -default Side effects of treatment? @ -No Exacerbation, Progression, or Severe Exacerbation? @ -No Poses a threat to life or bodily function? How? (Chest pain, [place], MT, pneumonia, PE, COPD, DKA, ARF, appy, cholecystitis, CVA, Diverticulitis, Homicidal, Suicidal, threat to staff... and all critical care pts) @ -No - Lab Data Result diagrams: 12/07/22 10:11 12/07/22 10:11 Lab Results 12/07/22 12/07/22 12/07/22 Range/Units 09:59 10:11 10:11 WBC 6.6 (3.8-10.6) k/uL RBC 4.53 (3.80-5.40) m/uL Hgb 13.0 (11.4-16.0) gm/dL Hct 37.3 (34.0-46.0) % MCV 82.4 (80.0-100.0) fL MCH 28.7 (25.0-35.0) pg MCHC 34.9 (31.0-37.0) g/dL RDW 15.0 (11.5-15.5) % Plt Count 204 (150-450) k/uL MPV 8.5 Neutrophils % 55 % Lymphocytes % 32 % Monocytes % 5 % Eosinophils % 4 % Basophils % 0 % Neutrophils # 3.6 (1.3-7.7) k/uL Lymphocytes # 2.1 (1.0-4.8) k/uL Monocytes # 0.4 (0-1.0) k/uL Eosinophils # 0.3 (0-0.7) k/uL Basophils # 0.0 (0-0.2) k/uL PT 9.8 (9.0-12.0) sec INR 0.9 (<1.2) APTT 23.7 (22.0-30.0) sec Sodium (137-145) mmol/L Potassium (3.5-5.1) mmol/L Chloride (98-107) mmol/L Carbon Dioxide (22-30) mmol/L Anion Gap mmol/L BUN (7-17) mg/dL Creatinine (0.52-1.04) mg/dL Est GFR (CKD-EPI)AfAm (>60 ml/min/1.73 sqM) Est GFR (CKD-EPI)NonAf (>60 ml/min/1.73 sqM) Glucose (74-99) mg/dL POC Glucose (mg/dL) 142 H (70-110) mg/dL POC Glu Environmental Air Specialist ID [email or web address] Calcium (8.4-10.2) mg/dL Magnesium (1.6-2.3) mg/dL Total Bilirubin (0.2-1.3) mg/dL AST (14-36) U/L ALT (4-34) U/L Alkaline Phosphatase (38-126) U/L Troponin I (0.000-0.034) ng/mL Total Protein (6.3-8.2) g/dL Albumin (3.5-5.0) g/dL 12/07/22 12/07/22 Range/Units 10:11 10:11 WBC (3.8-10.6) k/uL RBC (3.80-5.40) m/uL Hgb (11.4-16.0) gm/dL Hct (34.0-46.0) % MCV (80.0-100.0) fL MCH (25.0-35.0) pg MCHC (31.0-37.0) g/dL RDW (11.5-15.5) % Plt Count (150-450) k/uL MPV Neutrophils % % Lymphocytes % % Monocytes % % Eosinophils % % Basophils % % Neutrophils # (1.3-7.7) k/uL Lymphocytes # (1.0-4.8) k/uL Monocytes # (0-1.0) k/uL Eosinophils # (0-0.7) k/uL Basophils # (0-0.2) k/uL PT (9.0-12.0) sec INR (<1.2) APTT (22.0-30.0) sec Sodium 137 (137-145) mmol/L Potassium 4.8 (3.5-5.1) mmol/L Chloride 104 (98-107) mmol/L Carbon Dioxide 24 (22-30) mmol/L Anion Gap 9 mmol/L BUN 10 (7-17) mg/dL Creatinine 0.57 (0.52-1.04) mg/dL Est GFR (CKD-EPI)AfAm >90 (>60 ml/min/1.73 sqM) Est GFR (CKD-EPI)NonAf >90 (>60 ml/min/1.73 sqM) Glucose 147 H (74-99) mg/dL POC Glucose (mg/dL) (70-110) mg/dL POC Glu Environmental Air Specialist ID Calcium 8.8 (8.4-10.2) mg/dL Magnesium 1.3 L (1.6-2.3) mg/dL Total Bilirubin 0.3 (0.2-1.3) mg/dL AST 19 (14-36) U/L ALT 23 (4-34) U/L Alkaline Phosphatase 104 (38-126) U/L Troponin I <0.012 (0.000-0.034) ng/mL Total Protein 6.4 (6.3-8.2) g/dL Albumin 3.7 (3.5-5.0) g/dL Disposition Clinical Impression: Chest pain Disposition: ADMITTED IP TO THIS HOSP Is patient prescribed a controlled substance at d/c from ED?: No Referrals: Nonstaff,Physician [Primary Care Provider] - 1-2 days Time of Disposition: 11:38
[2022-12-07 10:24] LABS: Basophils % (A) 0 %; Eosinophils # (A) 0.3 k/uL (0-0.7); Eosinophils % (A) 4 %; HCT 37.3 % (34.0-46.0); Lymphocytes # (A) 2.1 k/uL (1.0-4.8); Lymphocytes % (A) 32 %; MCH 28.7 pg (25.0-35.0); MCHC 34.9 g/dL (31.0-37.0); MCV 82.4 fL (80.0-100.0); Mean Platelet Volume 8.5; Monocytes # (A) 0.4 k/uL (0-1.0); Monocytes % (A) 5 %; Neutrophils # (A) 3.6 k/uL (1.3-7.7); Neutrophils % (A) 55 %; Platelet Count 204 k/uL (150-450); RBC 4.53 m/uL (3.80-5.40); WBC 6.6 k/uL (3.8-10.6)
[2022-12-07 10:41] LABS: ALT 23 U/L (4-34); AST 19 U/L (14-36); African American GFR (CKD) >90 (>60 ml/min/1.73 sqM); Albumin 3.7 g/dL (3.5-5.0); Alkaline Phosphatase 104 U/L (38-126); Anion Gap 9 mmol/L; Blood Urea Nitrogen 10 mg/dL (7-17); Calcium 8.8 mg/dL (8.4-10.2); Carbon Dioxide 24 mmol/L (22-30); Chloride 104 mmol/L (98-107); Glucose 147 mg/dL (74-99); Magnesium 1.3 mg/dL (1.6-2.3); Non-African American GFR(CKD) >90 (>60 ml/min/1.73 sqM); Potassium 4.8 mmol/L (3.5-5.1); Sodium 137 mmol/L (137-145); Total Bilirubin 0.3 mg/dL (0.2-1.3); Total Protein 6.4 g/dL (6.3-8.2)
[2022-12-07 10:52] LABS: INR 0.9 (<1.2); Partial Thromboplastin Time 23.7 sec (22.0-30.0); Prothrombin Time 9.8 sec (9.0-12.0)
--- NOTE | 2022-12-07 10:54 | XR ---
EXAMINATION TYPE: XR chest 2V DATE OF EXAM: 12/07/2022 COMPARISON: Chest x-ray September 22, 2022 HISTORY: Chest pain. TECHNIQUE: Frontal and lateral views of the chest are obtained. FINDINGS: Overlying sternal wires and mediastinal clips are redemonstrated. There is no suspicious fo kaiden air space opacity, pleural effusion, or pneumothorax seen. The cardiac silhouette size is stable and within normal limits. Coronary artery stent posteriorly on lateral view is redemonstrated. The osseous structures are intact. IMPRESSION: Chronic changes without acute pulmonary process.
[2022-12-07] MEDS ORDERED: NITROGLYCERIN SL TABS 0.4 MG TAB SUBLINGUAL PRN ×2 (11:35→13:07)
[2022-12-07] MEDS ORDERED: MAGNESIUM OXIDE 400 MG TAB PO STA (11:51)
[2022-12-07] MEDS: NITROGLYCERIN OINT 1 INCH/GM PACKET TOPICAL SCH ×3 (12:56→23:22)
[2022-12-07] MEDS ORDERED: traZODone HCL 100 MG TAB PO PRN (13:07)
[2022-12-07] MEDS ORDERED: ACETAMINOPHEN TAB 325 MG TAB PO PRN (13:07)
[2022-12-07] MEDS ORDERED: ONDANSETRON 4 MG TAB PO PRN (13:07)
--- NOTE | 2022-12-07 13:16 | P.HPIM ---
History of Present Illness 52-year-old the female came in with compensative chest pressure like sensation lasts a few minutes in the midsternal area pressure-like sensation radiating to along with lightheadedness and some diaphoresis. Patient does have history of coronary disease and CABG in the past. Chest x-ray did not show any significant abnormality. Troponins are negative EKG showed nonspecific ST-T wave changes. REVIEW OF SYSTEMS: CONSTITUTIONAL: No fever, no malaise, no fatigue. HEENT: No recent visual problems or hearing problems. Denied any sore throat. CARDIOVASCULAR: No chest pain, orthopnea, PND, no palpitations, no syncope. PULMONARY: No shortness of breath, no cough, no hemoptysis. GASTROINTESTINAL: No diarrhea, no nausea, no vomiting, no abdominal pain. NEUROLOGICAL: No headaches, no weakness, no numbness. HEMATOLOGICAL: Denies any bleeding or petechiae. GENITOURINARY: Denies any burning micturition, frequency, or urgency. MUSCULOSKELETAL/RHEUMATOLOGICAL: Denies any joint pain, swelling, or any muscle pain. ENDOCRINE: Denies any polyuria or polydipsia. The rest of the 14-point review of systems is negative. PHYSICAL EXAMINATION: GENERAL: The patient is alert and oriented x3, not in any acute distress. Well developed, well nourished. HEENT: Pupils are round and equally reacting to light. EOMI. No scleral icterus. No conjunctival pallor. Normocephalic, atraumatic. No pharyngeal erythema. No thyromegaly. CARDIOVASCULAR: S1 and S2 present. No murmurs, rubs, or gallops. PULMONARY: Chest is clear to auscultation, no wheezing or crackles. ABDOMEN: Soft, nontender, nondistended, normoactive bowel sounds. No palpable organomegaly. MUSCULOSKELETAL: No joint swelling or deformity. EXTREMITIES: No cyanosis, clubbing, or pedal edema. NEUROLOGICAL: Gross neurological examination did not reveal any focal deficits. SKIN: No rashes. Assessment and plan -Atypical chest pain: Patient will be admitted and evaluated the patient, patient is on aspirin and Plavix at home which will be continued along with statin beta siddhartha. 2 subsequent troponins were negative patient is presently not on any heparin at this time. -Diabetes mellitus - hypertension - coronary artery disease with CABG in the past - depression for above-mentioned chronic medical problems patient was resumed on appropriate home medications DVT prophylaxis: Ambulation Past Medical History Past Medical History: Chest Pain / Angina, Diabetes Mellitus, Hypertension, Myocardial Infarction (SD) Additional Past Medical History / Comment(s): DM2. History of Any Multi-Drug Resistant Organisms: None Reported Past Surgical History: Coronary Bypass/CABG, Heart Catheterization, Heart Catheterization With Stent, Orthopedic Surgery Additional Past Surgical History / Comment(s): bypass 2013, last stent 2016. right carpal tunnel. Past Anesthesia/Blood Transfusion Reactions: No Reported Reaction Date of Last Stent Placement:: 2016 Past Psychological History: Anxiety, Bipolar, Depression Smoking Status: Current every day smoker Past Alcohol Use History: None Reported Past Drug Use History: Cocaine - Past Family History Father Additional Family Medical History / Comment(s): Father had heart "problems". He is . Mother Family Medical History: Coronary Artery Disease (CAD) Additional Family Medical History / Comment(s): Mother during a heart procedure. Medications and Allergies Home Medications Medication Instructions Recorded Confirmed Type Acetaminophen [Tylenol] 650 mg PO Q4H PRN 12/03/20 12/07/22 History Aspirin 81 mg PO DAILY 12/03/20 12/07/22 History Atorvastatin [Lipitor] 40 mg PO HS 12/03/20 12/07/22 History Clopidogrel Bisulfate [Plavix] 75 mg PO DAILY 12/03/20 12/07/22 History Isosorbide Mononitrate ER [Imdur] 30 mg PO DAILY 12/03/20 12/07/22 History Nitroglycerin Sl Tabs [Nitrostat] 0.4 mg SL Q5M PRN 12/03/20 12/07/22 History metFORMIN HCL [Glucophage] 1,000 mg PO BID 12/03/20 12/07/22 History Metoprolol Tartrate [Lopressor] 25 mg PO TID 09/22/22 12/07/22 History Venlafaxine HCl [Effexor XR] 150 mg PO DAILY 09/22/22 12/07/22 History busPIRone HCl [Buspar] 10 mg PO TID 09/22/22 12/07/22 History Benzonatate [Tessalon Perles] 100 mg PO TID PRN 12/07/22 12/07/22 History ondansetron HCL [Zofran] 8 mg PO Q6H PRN 12/07/22 12/07/22 History traZODone HCL [Desyrel] 200 mg PO HS PRN 12/07/22 12/07/22 History Allergies Allergy/AdvReac Type Severity Reaction Status Date / Time phenobarbital AdvReac Hyper Verified 12/07/22 10:38 Physical Exam Vitals: Vital Signs Temp Pulse Pulse Resp BP Pulse Ox 12/07/22 12:59 86 20 129/79 97 12/07/22 11:20 82 16 121/97 97 12/07/22 10:08 62 16 122/66 96 12/07/22 10:04 66 12/07/22 09:49 98.1 F 68 20 111/78 98 Intake and Output 12/06/22 12/07/22 12/07/22 22:59 06:59 14:59 Other: Weight 79.379 kg Results CBC & Chem 7: 12/07/22 10:11 12/07/22 10:11 Labs: Abnormal Lab Results - Last 24 Hours (Table) 12/07/22 12/07/22 Range/Units 09:59 10:11 Glucose 147 H (74-99) mg/dL POC Glucose (mg/dL) 142 H (70-110) mg/dL Magnesium 1.3 L (1.6-2.3) mg/dL
[2022-12-07] MEDS: MAGNESIUM SULFATE-D5W PMX 1 GM in DEXTROSE/WATER 1 100ML.BAG IVPB SCH ×3 (14:23→17:06)
--- NOTE | 2022-12-07 14:31 | P.CRDCN ---
History of Present Illness Consult date: 12/07/22 History of present illness: History of present illness: This is a 52-year-old female with past medical history for two myocardial infarctions, coronary artery disease with prior 4 vessel CABG in 2014 and with prior 5 stents placements in 2017, Type 2 Diabetes, hypertension, hyperlipidemia, substance abuse (cocaine), current every day smoker, smokes 1 pack per day. She follows with Dr. Day in [place]. We are being consulted for chest pain. She presents to the emergency room from [place] with left-sided chest pain along with nausea sweats dizziness and left arm and left jaw pain. She felt faint when she was having chest pain. She received one nitroglycerin at [place] and one by EMS along with 4 aspirin and chest pain resolved. Pain started when she was walking to get a coffee. She describes it as sharp and jabbing on the left breast and left side of her chest. Patient last used crack cocaine November 13 or . She denies any alcohol use and denies any other illicit drug use. Patient states that she had a outpatient stress test echocardiogram and pulmonary function tests done at [facility] in August or September of this year. She has a family history of cardiac disease mother of an ME in her 60s, and father of an ME at age 79. EKG reveals normal sinus rhythm heart rate 61, no significant STT wave abnormalities Chest xray Chronic changes no acute findings CBC within normal limits. INR 0.9. Lites normal. BUN 10 and creatinine 0.57. Blood sugar 147. Troponins negative 2. Liver function tests are normal. Magnesium 1.3. Current cardiac medications include aspirin 81 mg daily, atorvastatin 40 mg at bedtime, Plavix 75 mg daily, Imdur 30 mg daily, Lopressor 25 mg 3 times daily, Nitrostat as needed. REVIEW OF SYSTEMS At the time of my exam: CONSTITUTIONAL: Denies fever or chills. CARDIOVASCULAR: Denies chest pain,orthopnea, PND or palpitations. RESPIRATORY: Denies cough. GASTROINTESTINAL: Denies abdominal pain, diarrhea, constipation, nausea or vomiting. MUSCULOSKELETAL: Denies myalgias. NEUROLOGIC: Denies numbness, tingling, headacbe or weakness. ENDOCRINE: Denies fatigue, weight change, polydipsia or polyurina. GENITOURINARY: Denies burning, hematuria or urgency with micturation. HEMATOLOGIC: Denies history of anemia or bleeding. PHYSICAL EXAMINATION Blood pressure 129/79 heart rate 86 afebrile and pulse ox 97% on room air CONSTITUTIONAL: No apparent distress. HEENT: Head is normocephalic. Pupils are equal, round. Sclerae anicteric. Mucous membranes of the mouth are moist. No JVD. No carotid bruit. CHEST EXAMINATION: Lungs are clear to auscultation. No chest wall tenderness is noted on palpation or with deep breathing. HEART EXAMINATION: Regular rate and rhythm. S1, S2 heard. No murmurs, gallops or rub. ABDOMEN: Soft, nontender. Positive bowel sounds. EXTREMITIES: 2+ peripheral pulses, no lower extremity edema and no calf tenderness. NEUROLOGIC EXAMINATION: Patient is awake, alert and oriented x3. ASSESSMENT Chest pain, unclear etiology, EKG with no evidence of ischemia Coronary disease with prior 4 vessel CABG in 2013 and with prior stent placement in 2016 Type 2 diabetes Hypertension Dyslipidemia Substance abuse- cocaine - last used November 13 Chronic nicotine dependence PLAN Resume patient's home cardiac medications Obtain third troponin and depending on results of troponin, patient may be scheduled for additional workup. Obtain echo and stress test results from [facility] Further recommendations as patient progresses Thank you kindly for this consultation. Nurse Practitioner note has been reviewed, I agree with a documented findings and plan of care. Patient was seen and examined. Past Medical History Past Medical History: Chest Pain / Angina, Diabetes Mellitus, Hypertension, Myocardial Infarction (ME) Additional Past Medical History / Comment(s): DM2. History of Any Multi-Drug Resistant Organisms: None Reported Past Surgical History: Coronary Bypass/CABG, Heart Catheterization, Heart Cath eterization With Stent, Orthopedic Surgery Additional Past Surgical History / Comment(s): bypass 2013, last stent 2016. right carpal tunnel. Past Anesthesia/Blood Transfusion Reactions: No Reported Reaction Date of Last Stent Placement:: 2016 Past Psychological History: Anxiety, Bipolar, Depression Smoking Status: Current every day smoker Past Alcohol Use History: None Reported Past Drug Use History: Cocaine - Past Family History Father Additional Family Medical History / Comment(s): Father had heart "problems". He is . Mother Family Medical History: Coronary Artery Disease (CAD) Additional Family Medical History / Comment(s): Mother during a heart procedure. Medications and Allergies Home Medications Medication Instructions Recorded Confirmed Type Acetaminophen [Tylenol] 650 mg PO Q4H PRN 12/03/20 12/07/22 History Aspirin 81 mg PO DAILY 12/03/20 12/07/22 History Atorvastatin [Lipitor] 40 mg PO HS 12/03/20 12/07/22 History Clopidogrel Bisulfate [Plavix] 75 mg PO DAILY 12/03/20 12/07/22 History Isosorbide Mononitrate ER [Imdur] 30 mg PO DAILY 12/03/20 12/07/22 History Nitroglycerin Sl Tabs [Nitrostat] 0.4 mg SL Q5M PRN 12/03/20 12/07/22 History metFORMIN HCL [Glucophage] 1,000 mg PO BID 12/03/20 12/07/22 History Metoprolol Tartrate [Lopressor] 25 mg PO TID 09/22/22 12/07/22 History Venlafaxine HCl [Effexor XR] 150 mg PO DAILY 09/22/22 12/07/22 History busPIRone HCl [Buspar] 10 mg PO TID 09/22/22 12/07/22 History Benzonatate [Tessalon Perles] 100 mg PO TID PRN 12/07/22 12/07/22 History ondansetron HCL [Zofran] 8 mg PO Q6H PRN 12/07/22 12/07/22 History traZODone HCL [Desyrel] 200 mg PO HS PRN 12/07/22 12/07/22 History Allergies Allergy/AdvReac Type Severity Reaction Status Date / Time phenobarbital AdvReac Hyper Verified 12/07/22 10:38 Physical Exam Vitals: Vital Signs Temp Pulse Pulse Resp BP Pulse Ox 12/07/22 12:59 86 20 129/79 97 12/07/22 11:20 82 16 121/97 97 12/07/22 10:08 62 16 122/66 96 12/07/22 10:04 66 12/07/22 09:49 98.1 F 68 20 111/78 98 Intake and Output 12/06/22 12/07/22 12/07/22 22:59 06:59 14:59 Other: Weight 79.379 kg Results 12/07/22 10:11 12/07/22 10:11 Cardiac Enzymes 12/07/22 12/07/22 12/07/22 Range/Units 10:11 10:11 11:40 AST 19 (14-36) U/L Troponin I <0.012 <0.012 (0.000-0.034) ng/mL Coagulation 12/07/22 Range/Units 10:11 PT 9.8 (9.0-12.0) sec APTT 23.7 (22.0-30.0) sec CBC 12/07/22 Range/Units 10:11 WBC 6.6 (3.8-10.6) k/uL RBC 4.53 (3.80-5.40) m/uL Hgb 13.0 (11.4-16.0) gm/dL Hct 37.3 (34.0-46.0) % Plt Count 204 (150-450) k/uL Comprehensive Metabolic Panel 12/07/22 Range/Units 10:11 Sodium 137 (137-145) mmol/L Potassium 4.8 (3.5-5.1) mmol/L Chloride 104 (98-107) mmol/L Carbon Dioxide 24 (22-30) mmol/L BUN 10 (7-17) mg/dL Creatinine 0.57 (0.52-1.04) mg/dL Glucose 147 H (74-99) mg/dL Calcium 8.8 (8.4-10.2) mg/dL AST 19 (14-36) U/L ALT 23 (4-34) U/L Alkaline Phosphatase 104 (38-126) U/L Total Protein 6.4 (6.3-8.2) g/dL Albumin 3.7 (3.5-5.0) g/dL Current Medications Generic Name Dose Route Start Last Admin Trade Name Freq PRN Reason Stop Dose Admin Acetaminophen 650 mg 12/07/22 13:07 Acetaminophen Tab 325 Mg Tab PO Q4H PRN Fever and/ or Mild Pain Aspirin 81 mg 12/08/22 09:00 Aspirin 81 Mg PO DAILY [facility] Atorvastatin Calcium 40 mg 12/07/22 21:00 Atorvastatin 40 Mg Tab PO HS [facility] Buspirone HCl 10 mg 12/07/22 16:00 Buspirone Hcl 10 Mg Tab PO TID [facility] Clopidogrel Bisulfate 75 mg 12/08/22 09:00 Clopidogrel 75 Mg Tab PO DAILY [facility] Magnesium Sulfate/Dextrose 1 100 mls @ 100 mls/hr 12/07/22 13:30 gm/ IV Solution IVPB 12/07/22 16:29 Q1H [facility] Isosorbide Mononitrate 30 mg 12/08/22 09:00 Isosorbide Mononitrate Er 30 Mg Tab.Er.24h PO DAILY [facility] Metoprolol Tartrate 25 mg 12/07/22 16:00 Metoprolol Tartrate 25 Mg Tab PO TID [facility] Nitroglycerin 1 inch 12/07/22 12:00 12/07/22 12:56 Nitroglycerin Oint 1 Inch/Gm Packet TOPICAL 12/08/22 02:00 1 inch Q6HR [facility] Administration Nitroglycerin 0.4 mg 12/07/22 13:07 Nitroglycerin Sl Tabs 0.4 Mg Tab SUBLINGUAL Q5M PRN Chest Pain Ondansetron HCl 8 mg 12/07/22 13:07 Ondansetron 4 Mg Tab PO Q6H PRN Nausea And Vomiting Trazodone HCl 200 mg 12/07/22 13:07 Trazodone Hcl 100 Mg Tab PO HS PRN Insomnia Venlafaxine HCl 150 mg 12/08/22 09:00 Venlafaxine Hcl Er 150 Mg Cap PO DAILY [facility] Intake and Output 12/06/22 12/07/22 12/07/22 22:59 06:59 14:59 Other: Weight 79.379 kg Patient Weight 12/08/22 06:59 Weight 79.379 kg 12/07/22 10:11 12/07/22 10:11
[2022-12-07] MEDS: METOPROLOL TARTRATE 25 MG TAB PO SCH ×2 (18:09→20:34)
[2022-12-07] MEDS: busPIRone HCl 10 MG TAB PO SCH ×2 (18:09→23:22)
[2022-12-07] MEDS ORDERED: ATORVASTATIN 40 MG TAB PO SCH (21:00)
[2022-12-08 00:28] VITALS: RESP 16
[2022-12-08] MEDS: METOPROLOL TARTRATE 25 MG TAB PO SCH (08:55)
[2022-12-08] MEDS: busPIRone HCl 10 MG TAB PO SCH (08:55)
[2022-12-08] MEDS ORDERED: CLOPIDOGREL 75 MG TAB PO SCH (09:00)
[2022-12-08] MEDS ORDERED: ASPIRIN 325 MG TAB PO SCH (09:00)
[2022-12-08] MEDS ORDERED: ISOSORBIDE MONONITRATE ER 30 MG TAB.ER.24H PO SCH (09:00)
[2022-12-08] MEDS ORDERED: ASPIRIN 81 MG PO SCH (09:00)
[2022-12-08] MEDS ORDERED: VENLAFAXINE HCL ER 150 MG CAP PO SCH (09:00)
[2022-12-08 09:17] VITALS: BP 146/83; PULSE 72; TEMP 98
[2022-12-08 10:01] LABS: Chol/HDL Ratio 5.21 Ratio; LDL Cholesterol,Calculated 58.9 mg/dL (0.0-131.0)
--- NOTE | 2022-12-08 12:05 | P.PN ---
Subjective Progress Note Date: 12/08/22 This is a 52-year-old female with past medical history for two myocardial infarctions, coronary artery disease with prior 4 vessel CABG in 2014 and with prior 5 stents placements in 2017, Type 2 Diabetes, hypertension, hyperlipidemia, substance abuse (cocaine), current every day smoker, smokes 1 pack per day. She follows with Dr. Day in [place]. We are being consulted for chest pain. She presents to the emergency room from [place] with left-sided chest pain along with nausea sweats dizziness and left arm and left jaw pain. She felt faint when she was having chest pain. She received one nitroglycerin at [place] and one by EMS along with 4 aspirin and chest pain resolved. Pain started when she was walking to get a coffee. She describes it as sharp and jabbing on the left breast and left side of her chest. Patient last used crack cocaine November 13 or . She denies any alcohol use and denies any other illicit drug use. Patient states that she had an outpatient stress test, ec hocardiogram, and pulmonary function tests done with her primary dip unit operator in [place] in August or September of this year. 12/08/2022 Was seen and examined resting comfortably in bed. Records are received from [place] and she underwent stress testing in July 2022 that showed no evidence for reversible ischemia and echocardiogram at that time showed a normal LV systolic function with no significant valvular abnormalities. The patient denies further complaints of chest discomfort. She's had no dizziness or palpitations. She's been up walking without difficulties. She denies any short ness of breath, orthopnea or PND. She has no edema. Objective - Vital Signs Vital signs: Vital Signs Temp 98.0 F 12/08/22 07:00 Pulse 72 12/08/22 07:00 Resp 16 12/08/22 07:00 BP 146/83 12/08/22 07:00 Pulse Ox 96 12/08/22 07:00 FiO2 Intake & Output 12/07/22 12/08/22 12/08/22 18:59 06:59 18:59 Intake Total 240 Balance 240 Weight 79.379 kg Intake: Oral 240 Other: Voiding Method Toilet # Voids 2 - Exam CONSTITUTIONAL: No apparent distress. HEENT: Head is normocephalic. Pupils are equal, round. Sclerae anicteric. Mucous membranes of the mouth are moist. No JVD. No carotid bruit. CHEST EXAMINATION: Lungs are clear to auscultation. No chest wall tenderness is noted on palpation or with deep breathing. HEART EXAMINATION: Regular rate and rhythm. S1, S2 heard. No murmurs, gallops or rub. ABDOMEN: Soft, nontender. Positive bowel sounds. EXTREMITIES: 2+ peripheral pulses, no lower extremity edema and no calf tend erness. NEUROLOGIC EXAMINATION: Patient is awake, alert and oriented x3. - Labs CBC & Chem 7: 12/07/22 10:11 12/07/22 10:11 Labs: Abnormal Lab Results - Last 24 Hours (Table) 12/07/22 12/08/22 Range/Units 10:11 05:45 Glucose 147 H (74-99) mg/dL Magnesium 1.3 L (1.6-2.3) mg/dL Triglycerides 372.00 H (0.00-149.00) mg/dL VLDL Cholesterol, Calc 74.40 H (5.00-40.00) mg/dL HDL Cholesterol 31.70 L (40.00-60.00) mg/dL Assessment and Plan Assessment: Chest pain, an acute coronary event has been ruled out, troponins are negative 3, EKG with no evidence of ischemia, most recent stress test in July 2022 showed no evidence of ischemia and echocardiogram with Doppler study was unremarkable. Coronary disease with prior 4 vessel CABG in 2013 and with prior stent placement in 2017 Type 2 diabetes Hypertension Dyslipidemia Substance abuse- cocaine - last used November 13 Chronic nicotine dependence Plan: From cardiology's perspective recent cardiac workup was reviewed. No need for further cardiac workup at this time. She may be discharged and she will follow- up with her primary dip unit operator as an outpatient. HEAD SCHOOL CUSTODIAN note has been reviewed, I agree with a documented findings and plan of care. Patient was seen and examined.
--- NOTE | 2022-12-11 13:08 | P.DS ---
Providers Date of admission: 12/07/22 11:35 Expected date of discharge: 12/08/22 Attending physician: Conor Landeros MD Consults: 12/07/22 11:35 Consult Physician Urgent Consulting Provider: Kevin Oviedo Consult Reason/Comments: cp Do you want consulting provider notified?: Yes Primary care physician: Physician Nonstaff Hospital Course: Final diagnosis -Atypical chest pain, ACS ruled out. Normal stress test -Diabetes mellitus - hypertension - coronary artery disease with CABG in the past - depression -Currently at [facility] for alcohol rehab due to chronic alcohol abuse -DVT prophylaxis Discharge disposition Patient is being discharged in a stable condition with guarded prognosis to [facility] for continued alcohol rehab. Patient will follow-up with her primary care provider in the [place] area in the outpatient setting upon discharge. Patient is to follow-up with cardiology outpatient as scheduled. Total time taken is greater than 35 minutes. Hospital course This is a 52-year-old female who was recently admitted with chest pain and was being closely monitored. Patient was evaluated by cardiology underwent stress test with echo and was normal and has been cleared by cardiology. Patient currently was staying at [facility] for alcohol rehab and has almost completed and will be returning there. Patient instructed to follow-up with her primary care provider as long with cardiology outpatient as scheduled. Please refer to cardiology notes for further HPI. Currently no reports of chest pain, shortness of breath, or palpitations. Patient is afebrile. No reports of nausea or vomiting and patient is tolerating diet. Patient will be going back to [facility] rehab today. Physical exam: Gen: This is a 52-year-old female who is awake, alert and oriented 3, well- developed, well-nourished, obese HEENT: Head is atraumatic, normocephalic. Pupils equal, round. Sclerae is anicteric. NECK: Supple. No JVD. No lymphadenopathy. No thyromegaly. LUNGS: Clear to auscultation. No wheezes or rhonchi. No intercostal retractions. HEART: Regular rate and rhythm. No murmur. ABDOMEN: Soft. Bowel sounds are present. No masses. No tenderness. EXTREMITIES: No pedal edema. No calf tenderness. NEUROLOGICAL: Patient is awake, alert and oriented x3. Cranial nerves 2 through 12 are grossly intact. Please refer to medication reconciliation sheet for a list of medications. The impression and plan of care has been dictated by Antonia Jordan, Nurse Practitioner as directed. Dr. Andreina MD I have performed a history and examination and MDM of this patient, discussed the same with the dictator, and agree with the dictator's assessment and plan as written ,documented as a scribe. Based on total visit time, I have performed more than 50% of the visit. Patient Condition at Discharge: Good Plan - Discharge Summary Discharge Rx Participant: No New Discharge Prescriptions: Continue Nitroglycerin Sl Tabs [Nitrostat] 0.4 mg SL Q5M PRN PRN Reason: Chest Pain Aspirin 81 mg PO DAILY Atorvastatin [Lipitor] 40 mg PO HS busPIRone HCl [Buspar] 10 mg PO TID Venlafaxine HCl [Effexor XR] 150 mg PO DAILY Acetaminophen [Tylenol] 650 mg PO Q4H PRN PRN Reason: Fever And/ Or Pain Isosorbide Mononitrate ER [Imdur] 30 mg PO DAILY Clopidogrel Bisulfate [Plavix] 75 mg PO DAILY metFORMIN HCL [Glucophage] 1,000 mg PO BID Metoprolol Tartrate [Lopressor] 25 mg PO TID traZODone HCL [Desyrel] 200 mg PO HS PRN PRN Reason: Insomnia ondansetron HCL [Zofran] 8 mg PO Q6H PRN PRN Reason: Nausea And Vomiting Benzonatate [Tessalon Perles] 100 mg PO TID PRN PRN Reason: Cough Discharge Medication List Acetaminophen [Tylenol] 650 mg PO Q4H PRN 12/03/20 [History] Aspirin 81 mg PO DAILY 12/03/20 [History] Atorvastatin [Lipitor] 40 mg PO HS 12/03/20 [History] Clopidogrel Bisulfate [Plavix] 75 mg PO DAILY 12/03/20 [History] Isosorbide Mononitrate ER [Imdur] 30 mg PO DAILY 12/03/20 [History] Nitroglycerin Sl Tabs [Nitrostat] 0.4 mg SL Q5M PRN 12/03/20 [History] metFORMIN HCL [Glucophage] 1,000 mg PO BID 12/03/20 [History] Metoprolol Tartrate [Lopressor] 25 mg PO TID 09/22/22 [History] Venlafaxine HCl [Effexor XR] 150 mg PO DAILY 09/22/22 [History] busPIRone HCl [Buspar] 10 mg PO TID 09/22/22 [History] Benzonatate [Tessalon Perles] 100 mg PO TID PRN 12/07/22 [History] ondansetron HCL [Zofran] 8 mg PO Q6H PRN 12/07/22 [History] traZODone HCL [Desyrel] 200 mg PO HS PRN 12/07/22 [History] Follow up Appointment(s)/Referral(s): Nonstaff,Physician [Primary Care Provider] - 1-2 days [facility] [NON-STAFF] - 1 Week Patient Instructions/Handouts: Chest Pain (DC) Activity/Diet/Wound Care/Special Instructions: Patient has been cleared by cardiology to return to [facility] Discharge Disposition: OTHER INSTITUTION NOT DEFINED
== END 2022-12-08 12:35 | disposition other institution (70) ==
LOC: EC 09:39 → 6NMEDSUR 11:35
PROVIDERS: ADMIT Internal Medicine; ATTEND Internal Medicine
DX: R07.89 Other chest pain (principal); I25.10 Atherosclerotic heart disease of native coronary artery without angina pectoris; I10 Essential (primary) hypertension; E11.9 Type 2 diabetes mellitus without complications; R11.0 Nausea; R61 Generalized hyperhidrosis; R42 Dizziness and giddiness; R06.00 Dyspnea, unspecified; I25.2 Old myocardial infarction; E78.5 Hyperlipidemia, unspecified; F14.10 Cocaine abuse, uncomplicated; F10.10 Alcohol abuse, uncomplicated; F17.210 Nicotine dependence, cigarettes, uncomplicated; F41.9 Anxiety disorder, unspecified; F31.9 Bipolar disorder, unspecified; Z79.82 Long term (current) use of aspirin; Z79.02 Long term (current) use of antithrombotics/antiplatelets; Z79.84 Long term (current) use of oral hypoglycemic drugs; Z79.899 Other long term (current) drug therapy; Z88.8 Allergy status to other drugs, medicaments and biological substances; Z95.1 Presence of aortocoronary bypass graft; Z95.5 Presence of coronary angioplasty implant and graft; Z98.890 Other specified postprocedural states; Z82.49 Family history of ischemic heart disease and other diseases of the circulatory system
CPT/HCPCS: 96366 ×2; 96365; 99285; 36415; 93005; 80061; 80053; 83735; 84484; 85025; 85610; 85730; 71046; G0378 ×2; J3475

== ENCOUNTER 2024-07-02 18:30 | Emergency (ER) | payer MEDICARE, OTHER ==
[2024-07-02 18:44] VITALS: TEMP 97.6
--- NOTE | 2024-07-02 18:47 | ED ---
Chest Pain HPI - General Chief Complaint: Chest Pain Stated Complaint: chest pain Time Seen by Provider: 07/02/24 18:36 Source: patient, RN notes reviewed, old records reviewed Mode of arrival: EMS - History of Present Illness Initial Comments: This is a 53-year-old female to ER with chest pain patient has a positive history of heart disease stent placed last month coming in with chest pain started prior to arrival and resolved on arrival. Patient has no other complaints no fever cough or congestion just nervous about having the chest pain MD Complaint: chest pain -: minutes(s) Pain Location: substernal, left chest Pain Radiation: none Severity: moderate Severity scale (1-10): 4 Quality: tightness, heaviness Consistency: constant Improves With: nothing Worsens With: nothing Anginal Symptoms: sense of impending doom Other Symptoms: palpitations Treatments Prior to Arrival: none - Related Data Home Medications Medication Instructions Recorded Confirmed Acetaminophen [Tylenol] 650 mg PO Q4H PRN 12/03/20 12/07/22 Aspirin 81 mg PO DAILY 12/03/20 12/07/22 Atorvastatin [Lipitor] 40 mg PO HS 12/03/20 12/07/22 Clopidogrel Bisulfate [Plavix] 75 mg PO DAILY 12/03/20 12/07/22 Isosorbide Mononitrate ER [Imdur] 30 mg PO DAILY 12/03/20 12/07/22 Nitroglycerin Sl Tabs [Nitrostat] 0.4 mg SL Q5M PRN 12/03/20 12/07/22 metFORMIN HCL [Glucophage] 1,000 mg PO BID 12/03/20 12/07/22 Metoprolol Tartrate [Lopressor] 25 mg PO TID 09/22/22 12/07/22 Venlafaxine HCl [Effexor XR] 150 mg PO DAILY 09/22/22 12/07/22 busPIRone HCl [Buspar] 10 mg PO TID 09/22/22 12/07/22 Benzonatate [Tessalon Perles] 100 mg PO TID PRN 12/07/22 12/07/22 ondansetron HCL [Zofran] 8 mg PO Q6H PRN 12/07/22 12/07/22 traZODone HCL [Desyrel] 200 mg PO HS PRN 12/07/22 12/07/22 Allergies Allergy/AdvReac Type Severity Reaction Status Date / Time phenobarbital AdvReac Hyper Verified 12/07/22 10:38 Review of Systems ROS Statement: Those systems with pertinent positive or pertinent negative responses have been documented in the HPI. ROS Other: All systems not noted in ROS Statement are negative. EKG Findings - EKG Comments: EKG Findings:: EKG is sinus 95 OR 148 QRS 98 QTc 414 - EKG Results: EKG: interpreted by GUY Past Medical History Past Medical History: Chest Pain / Angina, Diabetes Mellitus, Hypertension, Myocardial Infarction (IA) Additional Past Medical History / Comment(s): DM2. Last Myocardial Infarction Date:: 2018 History of Any Multi-Drug Resistant Organisms: None Reported Past Surgical History: Coronary Bypass/CABG, Heart Catheterization, Heart Catheterization With Stent, Orthopedic Surgery Additional Past Surgical History / Comment(s): bypass 2013, last stent 2016. right carpal tunnel. Past Anesthesia/Blood Transfusion Reactions: No Reported Reaction Date of Last Stent Placement:: 2016 Past Psychological History: Anxiety, Bipolar, Depression Smoking Status: Current every day smoker Past Alcohol Use History: None Reported Past Drug Use History: Cocaine - Past Family History Father Additional Family Medical History / Comment(s): Father had heart "problems". He is . Mother Family Medical History: Coronary Artery Disease (CAD) Additional Family Medical History / Comment(s): Mother during a heart procedure. General Exam General appearance: alert, in no apparent distress Head exam: Present: atraumatic, normocephalic, normal inspection Eye exam: Present: normal appearance, PERRL, EOMI. Absent: scleral icterus, conjunctival injection, periorbital swelling ENT exam: Present: normal exam, mucous membranes moist Neck exam: Present: normal inspection. Absent: tenderness, meningismus, lymphadenopathy Respiratory exam: Present: normal lung sounds bilaterally. Absent: respiratory distress, wheezes, rales, rhonchi, stridor Cardiovascular Exam: Present: regular rate, normal rhythm, normal heart sounds. Absent: systolic murmur, diastolic murmur, rubs, gallop, clicks GI/Abdominal exam: Present: soft, normal bowel sounds. Absent: distended, tenderness, guarding, rebound, rigid Extremities exam: Present: normal inspection, full ROM, normal capillary refill. Absent: tenderness, pedal edema, joint swelling, calf tenderness Back exam: Present: normal inspection Neurological exam: Present: alert, oriented X3, CN II-XII intact Psychiatric exam: Present: normal affect, normal mood Skin exam: Present: warm, dry, intact, normal color. Absent: rash Course Vital Signs 07/02/24 18:36 Temperature 97.6 F Pulse Rate 86 Respiratory 20 Rate Blood Pressure 134/80 O2 Sat by Pulse 98 Oximetry - Reevaluation(s) Reevaluation #1: 07/02/24 19:34 Medical records reviewed Reevaluation #2: 07/02/24 19:34 Patient symptoms improved remain improved and resolved on arrival Reevaluation #3: 07/02/24 19:34 Patient informed of results questions answered Reevaluation #4: Was pt. sent in by a medical professional or institution (JULIETH Ortega, GRAIN OILSEED OR PASTURE FARM WORKER, urgent care, hospital, or half-way...) When possible be specific @ -no Did you speak to anyone other than the patient for history (EMS, parent, family, police, friend...)? What history was obtained from this source @ -no Did you review nursing and triage notes (agree or disagree)? Why? @ -agree Are old charts reviewed (outside hosp., previous admission, EMS record, old EKG, old radiological studies, urgent care reports/EKG's, half-way records)? Report findings @ -yes Differential Diagnosis (chest pain, altered mental status, abdominal pain women, abdominal pain men, vaginal bleeding, weakness, fever, dyspnea, syncope, headache, dizziness, GI bleed, back pain, seizure, CVA, palpatations, mental health, musculoskeletal)? @ -prior EKG interpreted by me (3pts min.). @ -yes X-rays interpreted by me (1pt min.). @ -yes negative for acute disease CT interpreted by me (1pt min.). @ -no U/S interpreted by me (1pt. min.). @ -no What testing was considered but not performed or refused? (CT, X-rays, U/S, labs)? Why? @ -none What meds were considered but not given or refused? Why? @ -none Did you discuss the management of the patient with other professionals (professionals i.e. JULIETH Ortega, GRAIN OILSEED OR PASTURE FARM WORKER, lab, RT, psych nurse, high school social science teacher, management accounts manager, teacher, credit or loans officer, caser shoe parts)? Give summary @ -no Was smoking cessation discussed for >3mins.? @ -no Was critical care preformed (if so, how long)? @ -no Were there social determinants of health that impacted care today? How? (Homelessness, low income, unemployed, alcoholism, drug addiction, transportation, low edu. Level, literacy, decrease access to med. care, fpc, rehab)? @ -none Was there de-escalation of care discussed even if they declined (Discuss DNR or withdrawal of care, Hospice)? DNR status @ -no What co-morbidities impacted this encounter? (DM, HTN, Smoking, COPD, CAD, Cancer, CVA, ARF, Chemo, Hep., AIDS, mental health diagnosis, sleep apnea, morbid obesity)? @ -none Was patient admitted / discharged? Hospital course, mention meds given and route, prescriptions, significant lab abnormalities, going to OR and other pertinent info. @ - Undiagnosed new problem with uncertain prognosis? @ -no Drug Therapy requiring intensive monitoring for toxicity (Heparin, Nitro, Insulin, Cardizem)? @ -no Were any procedures done? @ -no Diagnosis/symptom? @ - Acute, or Chronic, or Acute on Chronic? @ -Acute Uncomplicated (without systemic symptoms) or Complicated (systemic symptoms)? @ -Complicated Side effects of treatment? @ -no Exacerbation, Progression, or Severe Exacerbation? @ -exacerbation Poses a threat to life or bodily function? How? (Chest pain, USA, IA, pneumonia, PE, COPD, DKA, ARF, appy, cholecystitis, CVA, Diverticulitis, Homicidal, Suicidal, threat to staff... and all critical care pts) @ -yes Reevaluation #5: Differential Chest Pain: Stable Angina, Unstable Angina, STEMI, NSTEMI Aortic Dissection, Pneumothorax, Musculoskeletal, Esophageal Spasm GERD, Cholecystitis, Pancreatitis, Zoster, this is not meant to be an all-inclusive list. Chest Pain MDM - MDM 53 female to ER for chest pain patient had cardiac cath last month with stent placed troponin negative x 2 here in the ER and she will be discharged home Disposition Clinical Impression: Chest pain, CAD (coronary artery disease) Disposition: HOME SELF-CARE Condition: Fair Instructions (If sedation given, give patient instructions): Chest Pain (ED) Is patient prescribed a controlled substance at d/c from ED?: No Referrals: None,Stated [Primary Care Provider] - 1-2 days Time of Disposition: 20:10
[2024-07-02 19:08] LABS: Basophils % (A) 1 %; Eosinophils # (A) 0.3 k/uL (0-0.7); Eosinophils % (A) 6 %; HCT 37.3 % (34.0-46.0); HGB 12.5 gm/dL (11.4-16.0); Lymphocytes % (A) 35 %; MCHC 33.4 g/dL (31.0-37.0); MCV 83.6 fL (80.0-100.0); Mean Platelet Volume 8.3; Monocytes # (A) 0.4 k/uL (0-1.0); Monocytes % (A) 7 %; Neutrophils # (A) 2.8 k/uL (1.3-7.7); Neutrophils % (A) 48 %; Platelet Count 194 k/uL (150-450); RBC 4.46 m/uL (3.80-5.40); RDW 13.7 % (11.5-15.5); WBC 5.8 k/uL (3.8-10.6)
[2024-07-02 19:16] LABS: ALT 13 U/L (4-34); AST 15 U/L (14-36); African American GFR (CKD) >90 (>60 ml/min/1.73 sqM); Alkaline Phosphatase 114 U/L (38-126); Anion Gap 5 mmol/L; Blood Urea Nitrogen 13 mg/dL (7-17); Calcium 9.1 mg/dL (8.4-10.2); Carbon Dioxide 23 mmol/L (22-30); Chloride 108 mmol/L (98-107); Glucose 153 mg/dL (74-99); Lipase 129 U/L (23-300); Magnesium 1.2 mg/dL (1.6-2.3); Non-African American GFR(CKD) 90 (>60 ml/min/1.73 sqM); Potassium 4.3 mmol/L (3.5-5.1); Sodium 136 mmol/L (137-145); Total Bilirubin 0.2 mg/dL (0.2-1.3); Total Protein 6.4 g/dL (6.3-8.2)
[2024-07-02 19:25] LABS: NT-Pro-B-Type Natriuretic Pept 563 pg/mL
--- NOTE | 2024-07-02 19:33 | XR ---
EXAMINATION TYPE: XR chest 2V DATE OF EXAM: 07/02/2024 7:23 PM COMPARISON: Previous chest radiograph 12/07/2022. CLINICAL INDICATION: Female, 53 years old with history of Chest Pain; [facility] TECHNIQUE: XR chest 2V Frontal and lateral views of the chest. FINDINGS: Lungs/Pleura: There is no evidence of pleural effusion, focal consolidation, or pneumothorax. Pulmonary vascularity: Unremarkable. Heart/mediastinum: Cardiomediastinal silhouette is unremarkable. Median sternotomy wires. Musculoskeletal: No acute osseous pathology. Other findings: None IMPRESSION: No acute cardiopulmonary disease/process. [facility], , 07/02/2024 7:30 PM
[2024-07-02 19:36] LABS: INR 0.9 (<1.2); Partial Thromboplastin Time 26.5 sec (22.0-30.0); Prothrombin Time 10.2 sec (10.0-12.5)
[2024-07-02] MEDS: MAG HYDROX/AL HYDROX/SIMETH 30 ML, HYOSCYAMINE ELIXIR 10 ML PO STA (19:48)
[2024-07-02] MEDS: ONDANSETRON 4 MG/2 ML VIAL IVP STA (19:48)
[2024-07-02] MEDS: MAGNESIUM OXIDE 400 MG TAB PO STA ×2 (19:49→20:11)
[2024-07-02] MEDS: LORazepam 2 MG/ML INJ IV STA (19:50)
[2024-07-02] MEDS: MAGNESIUM SULFATE-D5W PMX 1 GM in DEXTROSE/WATER 1 100ML.BAG IVPB ONE (19:50)
[2024-07-02 20:49] VITALS: RESP 18
[2024-07-02 21:58] VITALS: BP 140/88; PULSE 108
== END 2024-07-02 22:27 | disposition home or self-care (01) ==
LOC: EC 18:30 → SUPCPDRO 18:30 → EC 22:27
DX: R07.89 Other chest pain (principal); I25.10 Atherosclerotic heart disease of native coronary artery without angina pectoris; F17.200 Nicotine dependence, unspecified, uncomplicated; Z88.8 Allergy status to other drugs, medicaments and biological substances; Z95.1 Presence of aortocoronary bypass graft
CPT/HCPCS: 36415; 93005; 85379; 83880; 80053; 83690; 83735; 84484; 85025; 85610; 85730; 71046; 99285; 96365; 96375 ×2; J2060; J2405; J3475

== ENCOUNTER 2024-08-26 09:42 | Observation (INO) | payer OTHER, MEDICARE ==
--- NOTE | 2024-08-26 09:45 | ED ---
General Adult HPI - General Stated complaint: chest pain Time Seen by Provider: 08/26/24 09:42 Source: patient, RN notes reviewed, old records reviewed - History of Present Illness Initial comments: This is a 54-year-old female who presents to the emergency department stating that she has a past history of bypass surgery stent placement diabetes and high blood pressure. Patient states she also used crack cocaine her last time using was 10 days ago. Patient comes to us from [facility]. Patient also states she continues to smoke. Patient states she had chest pain this morning it lasted about an hour they gave her an aspirin and nitroglycerin and shortly thereafter her chest pain went away. Patient states she was short of breath with the chest pain there was no radiation of the pain. Patient states she did was a little bit sweaty and nauseous. Patient states in route they gave her Zofran and the nausea is gone away. Patient currently has no symptoms whatsoever. - Related Data Home Medications Medication Instructions Recorded Confirmed Isosorbide Mononitrate ER [Imdur] 30 mg PO DAILY 12/03/20 08/26/24 Nitroglycerin Sl Tabs [Nitrostat] 0.4 mg SL Q5M PRN 12/03/20 08/26/24 Metoprolol Tartrate [Lopressor] 25 mg PO BID 09/22/22 08/26/24 traZODone HCL [Desyrel] 100 - 300 mg PO HS PRN 12/07/22 08/26/24 Losartan [Cozaar] 25 mg PO DAILY 07/02/24 08/26/24 Acetaminophen Tab [Tylenol] 650 mg PO Q4H PRN 08/26/24 08/26/24 Aspirin 650 mg PO Q4H PRN 08/26/24 08/26/24 Aspirin [[place] Aspirin EC] 81 mg PO DAILY 08/26/24 08/26/24 Atorvastatin [Lipitor] 80 mg PO HS 08/26/24 08/26/24 Calcium Phos/D3/Magnesium/Zinc 1 tab PO TID PRN 08/26/24 08/26/24 [Rzentzx-Urn-Ptgs-Vitamin D3] Clopidogrel [Plavix] 75 mg PO DAILY 08/26/24 08/26/24 Empagliflozin/Metformin HCl 1 tab PO DAILY 08/26/24 08/26/24 [Synjardy Xr 25-1,000 mg Tablet] Icy Hot 1 applic TOPICAL DAILY PRN 08/26/24 08/26/24 Melatonin 10 mg PO HS 08/26/24 08/26/24 Varenicline [Chantix Continuing 1 mg PO BID 08/26/24 08/26/24 Pack] busPIRone HCl [Buspar] 10 mg PO TID 08/26/24 08/26/24 Allergies Allergy/AdvReac Type Severity Reaction Status Date / Time phenobarbital AdvReac Hyper Verified 08/26/24 11:09 Review of Systems ROS Statement: Those systems with pertinent positive or pertinent negative responses have been documented in the HPI. ROS Other: All systems not noted in ROS Statement are negative. Past Medical History Past Medical History: Chest Pain / Angina, Diabetes Mellitus, Hypertension, Myocardial Infarction (NH) Additional Past Medical History / Comment(s): DM2. Last Myocardial Infarction Date:: 2018 History of Any Multi-Drug Resistant Organisms: None Reported Past Surgical History: Coronary Bypass/CABG, Heart Catheterization, Heart Catheterization With Stent, Orthopedic Surgery Additional Past Surgical History / Comment(s): bypass 2013, last stent 2016. right carpal tunnel. Past Anesthesia/Blood Transfusion Reactions: No Reported Reaction Date of Last Stent Placement:: 2016 Past Psychological History: Anxiety, Bipolar, Depression Smoking Status: Current every day smoker Past Alcohol Use History: None Reported Past Drug Use History: Cocaine - Past Family History Father Additional Family Medical History / Comment(s): Father had heart "problems". He is . Mother Family Medical History: Coronary Artery Disease (CAD) Additional Family Medical History / Comment(s): Mother during a heart procedure. General Exam - General Exam Comments Initial Comments: GENERAL: Patient is well-developed and well-nourished. Patient is nontoxic and well- hydrated and is in mild distress. ENT: Neck is soft and supple. No significant lymphadenopathy is noted. Oropharynx is clear. Moist mucous membranes. Neck has full range of motion without eliciting any pain. EYES: The sclera were anicteric and conjunctiva were pink and moist. Extraocular movements were intact and pupils were equal round and reactive to light. Ey elids were unremarkable. PULMONARY: Unlabored respirations. Good breath sounds bilaterally. No audible rales rhonchi or wheezing was noted. CARDIOVASCULAR: There is a regular rate and rhythm without any murmurs gallops or rubs. ABDOMEN: Soft and nontender with normal bowel sounds. SKIN: Skin is clear with no lesions or rashes and otherwise unremarkable. NEUROLOGIC: Patient is alert and oriented x3. Cranial nerves II through XII are grossly intact. Motor and sensory are also intact. Normal speech, volume and content. Symmetrical smile. MUSCULOSKELETAL: Normal extremities with adequate strength and full range of motion. LYMPHATICS: No significant lymphadenopathy is noted PSYCHIATRIC: Normal psychiatric evaluation. Course Vital Signs 08/26/24 09:43 Temperature 97.6 F Pulse Rate 80 Respiratory 20 Rate Blood Pressure 113/80 O2 Sat by Pulse 99 Oximetry Medical Decision Making - Medical Decision Making EKG is interpreted by myself EKG shows sinus rhythm with occasional PVC at 76 bpm MN 154 QRS 96 QT interval 402 QTc is 432. Patient's EKG shows no ST segment elevation. Was pt. sent in by a medical professional or institution (JULIETH Ortega, WEIGHT INSPECTOR, urgent care, hospital, or senior care...) When possible be specific @ -No Did you speak to anyone other than the patient for history (EMS, parent, family, police, friend...)? What history was obtained from this source @ -No Did you review nursing and triage notes (agree or disagree)? Why? @ -I reviewed and agree with nursing and triage notes Were old charts reviewed (outside hosp., previous admission, EMS record, old EKG, old radiological studies, urgent care reports/EKG's, senior care records)? Report findings @ -No old charts were reviewed Differential Diagnosis? @ -Differential Chest Pain: Stable Angina, Unstable Angina, STEMI, NSTEMI Aortic Dissection, Pneumothorax, Musculoskeletal, Esophageal Spasm GERD, Cholecystitis, Pancreatitis, Zoster, this is not meant to be an all-inclusive list. EKG interpreted by me (3pts min.). @ -As above X-rays interpreted by me (1pt min.). @ -Chest x-ray shows no acute abnormality CT interpreted by me (1pt min.). @ -None done U/S interpreted by me (1pt. min.). @ -None done What testing was considered but not performed or refused? (CT, X-rays, U/S, labs)? Why? @ -None What meds were considered but not given or refused? Why? @ -None Did you discuss the management of the patient with other professionals (professionals i.e. , PA, WEIGHT INSPECTOR, lab, RT, psych nurse, drug abuse social worker, copy coordinator, teacher, radiation safety officer, counter caser)? Give summary @ -I spoke with Dr. Huertas and he agreed to admit the patient admit the patient. Was smoking cessation discussed for >3mins.? @ -No Was critical care preformed (if so, how long)? @ -No Were there social determinants of health that impacted care today? How? (Homelessness, low income, unemployed, alcoholism, drug addiction, transportation, low edu. Level, literacy, decrease access to med. care, nursing home, rehab)? @ -No Was there de-escalation of care discussed even if they declined (Discuss DNR or withdrawal of care, Hospice)? DNR status @ -No What co-morbidities impacted this encounter? (DM, HTN, Smoking, COPD, CAD, Cancer, CVA, ARF, Chemo, Hep., AIDS, mental health diagnosis, sleep apnea, morbid obesity)? @ -None Was patient admitted / discharged? Hospital course, mention meds given and route, prescriptions, significant lab abnormalities, going to OR and other pertinent info. @ -Patient arrived asymptomatic and continued to be asymptomatic throughout her ED stay. Patient's labs showed no acute normality. Patient chest x-ray showed no acute abnormality patient will be admitted to Dr. Huertas with a consult to cardiology Undiagnosed new problem with uncertain prognosis? @ -No Drug Therapy requiring intensive monitoring for toxicity (Heparin, Nitro, Insulin, Cardizem)? @ -No Were any procedures done? @ -No Diagnosis/symptom? @ -Chest pain Acute, or Chronic, or Acute on Chronic? @ -Acute Uncomplicated (without systemic symptoms) or Complicated (systemic symptoms)? @ -Comp Side effects of treatment? @ -No Exacerbation, Progression, or Severe Exacerbation? @ -No Poses a threat to life or bodily function? How? (Chest pain, USA, NH, pneumonia, PE, COPD, DKA, ARF, appy, cholecystitis, CVA, Diverticulitis, Homicidal, Suicidal, threat to staff... and all critical care pts) @ -Yes this could lead to an NH and endorgan dysfunction - Lab Data Result diagrams: 08/26/24 10:01 08/26/24 10:01 Lab Results 08/26/24 08/26/24 08/26/24 Range/Units 10:01 10:01 10:01 WBC 5.4 (3.8-10.6) k/uL RBC 4.34 (3.80-5.40) m/uL Hgb 12.1 (11.4-16.0) gm/dL Hct 35.4 (34.0-46.0) % MCV 81.5 (80.0-100.0) fL MCH 27.8 (25.0-35.0) pg MCHC 34.1 (31.0-37.0) g/dL RDW 14.6 (11.5-15.5) % Plt Count 196 (150-450) k/uL MPV 7.8 Neutrophils % 53 % Lymphocytes % 35 % Monocytes % 6 % Eosinophils % 4 % Basophils % 1 % Neutrophils # 2.9 (1.3-7.7) k/uL Lymphocytes # 1.9 (1.0-4.8) k/uL Monocytes # 0.3 (0-1.0) k/uL Eosinophils # 0.2 (0-0.7) k/uL Basophils # 0.0 (0-0.2) k/uL PT 10.4 (10.0-12.5) sec INR 0.9 (<1.2) APTT 23.9 (22.0-30.0) sec Sodium 136 L (137-145) mmol/L Potassium 4.5 (3.5-5.1) mmol/L Chloride 106 (98-107) mmol/L Carbon Dioxide 24 (22-30) mmol/L Anion Gap 6 mmol/L BUN 11 (7-17) mg/dL Creatinine 0.68 (0.52-1.04) mg/dL Est GFR (CKD-EPI)AfAm >90 (>60 ml/min/1.73 sqM) Est GFR (CKD-EPI)NonAf >90 (>60 ml/min/1.73 sqM) Glucose 170 H (74-99) mg/dL Calcium 9.1 (8.4-10.2) mg/dL Magnesium 1.4 L (1.6-2.3) mg/dL Total Bilirubin 0.2 (0.2-1.3) mg/dL AST 16 (14-36) U/L ALT 11 (4-34) U/L Alkaline Phosphatase 77 (38-126) U/L Troponin I (0.000-0.034) ng/mL Total Protein 6.0 L (6.3-8.2) g/dL Albumin 3.7 (3.5-5.0) g/dL 08/26/24 Range/Units 10:01 WBC (3.8-10.6) k/uL RBC (3.80-5.40) m/uL Hgb (11.4-16.0) gm/dL Hct (34.0-46.0) % MCV (80.0-100.0) fL MCH (25.0-35.0) pg MCHC (31.0-37.0) g/dL RDW (11.5-15.5) % Plt Count (150-450) k/uL MPV Neutrophils % % Lymphocytes % % Monocytes % % Eosinophils % % Basophils % % Neutrophils # (1.3-7.7) k/uL Lymphocytes # (1.0-4.8) k/uL Monocytes # (0-1.0) k/uL Eosinophils # (0-0.7) k/uL Basophils # (0-0.2) k/uL PT (10.0-12.5) sec INR (<1.2) APTT (22.0-30.0) sec Sodium (137-145) mmol/L Potassium (3.5-5.1) mmol/L Chloride (98-107) mmol/L Carbon Dioxide (22-30) mmol/L Anion Gap mmol/L BUN (7-17) mg/dL Creatinine (0.52-1.04) mg/dL Est GFR (CKD-EPI)AfAm (>60 ml/min/1.73 sqM) Est GFR (CKD-EPI)NonAf (>60 ml/min/1.73 sqM) Glucose (74-99) mg/dL Calcium (8.4-10.2) mg/dL Magnesium (1.6-2.3) mg/dL Total Bilirubin (0.2-1.3) mg/dL AST (14-36) U/L ALT (4-34) U/L Alkaline Phosphatase (38-126) U/L Troponin I <0.012 (0.000-0.034) ng/mL Total Protein (6.3-8.2) g/dL Albumin (3.5-5.0) g/dL Disposition Clinical Impression: Chest pain, History of cocaine abuse Disposition: ADMITTED IP TO THIS HOSP Referrals: None,Stated [REFERRING] - 1-2 days Time of Disposition: 11:35
[2024-08-26] MEDS: ACETAMINOPHEN TAB 500 MG TAB PO STA (10:11)
[2024-08-26] MEDS: NITROGLYCERIN OINT 1 INCH/GM PACKET TOPICAL STA (10:12)
[2024-08-26 10:13] LABS: Basophils % (A) 1 %; Eosinophils # (A) 0.2 k/uL (0-0.7); Eosinophils % (A) 4 %; HCT 35.4 % (34.0-46.0); HGB 12.1 gm/dL (11.4-16.0); Lymphocytes # (A) 1.9 k/uL (1.0-4.8); Lymphocytes % (A) 35 %; MCH 27.8 pg (25.0-35.0); MCHC 34.1 g/dL (31.0-37.0); MCV 81.5 fL (80.0-100.0); Mean Platelet Volume 7.8; Monocytes # (A) 0.3 k/uL (0-1.0); Monocytes % (A) 6 %; Neutrophils # (A) 2.9 k/uL (1.3-7.7); Neutrophils % (A) 53 %; Platelet Count 196 k/uL (150-450); RBC 4.34 m/uL (3.80-5.40); RDW 14.6 % (11.5-15.5); WBC 5.4 k/uL (3.8-10.6)
[2024-08-26 10:28] LABS: ALT 11 U/L (4-34); African American GFR (CKD) >90 (>60 ml/min/1.73 sqM); Albumin 3.7 g/dL (3.5-5.0); Anion Gap 6 mmol/L; Blood Urea Nitrogen 11 mg/dL (7-17); Calcium 9.1 mg/dL (8.4-10.2); Carbon Dioxide 24 mmol/L (22-30); Chloride 106 mmol/L (98-107); Glucose 170 mg/dL (74-99); Non-African American GFR(CKD) >90 (>60 ml/min/1.73 sqM); Sodium 136 mmol/L (137-145); Total Bilirubin 0.2 mg/dL (0.2-1.3)
[2024-08-26 10:29] LABS: AST 16 U/L (14-36); Alkaline Phosphatase 77 U/L (38-126); Magnesium 1.4 mg/dL (1.6-2.3); Potassium 4.5 mmol/L (3.5-5.1)
[2024-08-26 10:30] LABS: INR 0.9 (<1.2); Partial Thromboplastin Time 23.9 sec (22.0-30.0); Prothrombin Time 10.4 sec (10.0-12.5)
--- NOTE | 2024-08-26 10:30 | XR ---
EXAMINATION TYPE: XR chest 2V DATE OF EXAM: 08/26/2024 10:21 AM COMPARISON: Chest x-ray July 02, 2024 CLINICAL INDICATION: Female, 54 years old with history of Chest Pain, TECHNIQUE: Frontal and lateral views of the chest are obtained. FINDINGS: Overlying sternal wires and mediastinal clips are redemonstrated. There is no focal air sp [place]land opacity, pleural effusion, or pneumothorax seen. The cardiac silhouette size is within normal li mits. Suspect small to moderate size fixed hiatal hernia. The osseous structures are intact. Overlyi ng EKG leads and bra strap are again seen. IMPRESSION: Chronic changes without acute pulmonary process. [facility], , 08/26/2024 10:27 AM
[2024-08-26] MEDS: MAGNESIUM SULFATE-D5W PMX 1 GM in DEXTROSE/WATER 1 100ML.BAG IVPB ONE (10:58)
[2024-08-26] MEDS ORDERED: NITROGLYCERIN SL TABS 0.4 MG TAB SUBLINGUAL PRN (11:36)
[2024-08-26] MEDS: ISOSORBIDE MONONITRATE ER 30 MG TAB.ER.24H PO SCH (13:19)
[2024-08-26] MEDS: NITROGLYCERIN OINT 1 INCH/GM PACKET TOPICAL SCH (13:19)
[2024-08-26] MEDS: METOPROLOL TARTRATE 25 MG TAB PO SCH (13:19)
[2024-08-26] MEDS: CLOPIDOGREL 75 MG TAB PO SCH (13:19)
--- NOTE | 2024-08-26 14:43 | P.CRDCN ---
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 Patient presents from [place] due to chest pain. She states she was sitting at group therapy at [place] and developed chest pressure. She states she did not have any left arm involvement. It was on the left side of her chest and it felt discomfort and it occurred at rest. She had some difficulty in breathing and some nausea. She states she has vomiting for the last couple of nights but none during the day. She was given nitroglycerin and in 10 minutes the pain went away. Regarding patient's medications, she states she ran out about 3 weeks ago and has not been taking her medications until she went to [place]. Her last crack cocaine use was on August 16. She states she has been using crack cocaine for 25 years and has been through multiple rehab services. Patient has been instructed to not take a beta-siddhartha if she is doing cocaine. Blood pressure 113/80, heart rate 80, pulse ox 99% on room air. Patient is seen today in the emergency center waiting for a bed on the observation unit. Patient is status post magnesium 1 g IV piggyback, Nitro-Bid and aspirin. -EKG: Sinus rhythm with no acute ST changes. -Chest x-ray: No acute process. -Laboratory studies: CBC, INR normal. Sodium 136, potassium 4.5, BUN 11 creatinine 0.68. Troponin negative x 1. Magnesium 1.4. -Home cardiac medications: Aspirin 81 mg daily, atorvastatin 80 mg at bedtime, Plavix 75 mg daily, Imdur 30 mg daily, losartan 25 mg daily, Lopressor 25 mg twice daily, Nitrostat as needed. Review Of Systems: At the time of my exam: CONSTITUTIONAL: Denies fever or chills. HEENT: Denies blurred vision, vision changes, or eye pain. Denies hemoptysis CARDIOVASCULAR: Denies chest pain. Denies orthopnea. Denies PND. Denies palpitations RESPIRATORY: Denies shortness of breath. GASTROINTESTINAL: Denies abdominal pain. Denies nausea or vomiting. HEMATOLOGIC: Denies bleeding disorders. GENITOURINARY: Denies any blood in urine. SKIN: Denies puritis. Denies rash. Physical examination: Gen: This is a 54-year-old female in no acute distress VS: reviewed HEENT: Head is atraumatic, normocephalic. Pupils equal, round. Sclerae is anicteric. NECK: Supple. No JVD. LUNGS: Clear to auscultation. No wheezes or rhonchi. No intercostal retractions. HEART: Regular rate and rhythm. No murmur. ABDOMEN: Soft No tenderness. EXTREMITIES: No pedal edema. No calf tenderness. NEUROLOGICAL: Patient is awake, alert and oriented x3. Assessment: Chest pain Hypomagnesemia s/p replacement Known coronary artery disease with previous CABG and stents Diabetes mellitus type 2 Hypertension Hyperlipidemia Crack cocaine use Tobacco use Plan: Resume patient's home cardiac medications Repeat troponins Obtain 2-D echocardiogram and Doppler study to assess cardiac structure and function Plan to monitor patient overnight. Feel that patient's chest pain is most likely related to lack of taking her cardiac medications for 3 weeks. At this time, no plan for stress testing or cardiac catheterization. Further recommendations to follow based upon clinical course Thank you kindly for this consultation. Nurse practitioner note has been reviewed, I agree with documented findings and plan of care. Patient was seen and examined. Past Medical History Past Medical History: Chest Pain / Angina, Diabetes Mellitus, Hypertension, Myocardial Infarction ([place]) Additional Past Medical History / Comment(s): DM2. Last Myocardial Infarction Date:: 2018 History of Any Multi-Drug Resistant Organisms: None Reported Past Surgical History: Coronary Bypass/CABG, Heart Catheterization, Heart Catheterization With Stent, Orthopedic Surgery Additional Past Surgical History / Comment(s): bypass 2013, last stent 2016. right carpal tunnel. Past Anesthesia/Blood Transfusion Reactions: No Reported Reaction Date of Last Stent Placement:: 2016 Past Psychological History: Anxiety, Bipolar, Depression Smoking Status: Current every day smoker Past Alcohol Use History: None Reported Past Drug Use History: Cocaine - Past Family History Father Additional Family Medical History / Comment(s): Father had heart "problems". He is . Mother Family Medical History: Coronary Artery Disease (CAD) Additional Family Medical History / Comment(s): Mother during a heart procedure. Medications and Allergies Home Medications Medication Instructions Recorded Confirmed Type Isosorbide Mononitrate ER [Imdur] 30 mg PO DAILY 12/03/20 08/26/24 History Nitroglycerin Sl Tabs [Nitrostat] 0.4 mg SL Q5M PRN 12/03/20 08/26/24 History Metoprolol Tartrate [Lopressor] 25 mg PO BID 09/22/22 08/26/24 History traZODone HCL [Desyrel] 100 - 300 mg PO HS PRN 12/07/22 08/26/24 History Losartan [Cozaar] 25 mg PO DAILY 07/02/24 08/26/24 History Acetaminophen Tab [Tylenol] 650 mg PO Q4H PRN 08/26/24 08/26/24 History Aspirin 650 mg PO Q4H PRN 08/26/24 08/26/24 History Aspirin [[place] Aspirin EC] 81 mg PO DAILY 08/26/24 08/26/24 History Atorvastatin [Lipitor] 80 mg PO HS 08/26/24 08/26/24 History Calcium Phos/D3/Magnesium/Zinc 1 tab PO TID PRN 08/26/24 08/26/24 History [Ivaklhm-Cwx-Retx-Vitamin D3] Clopidogrel [Plavix] 75 mg PO DAILY 08/26/24 08/26/24 History Empagliflozin/Metformin HCl 1 tab PO DAILY 08/26/24 08/26/24 History [Synjardy Xr 25-1,000 mg Tablet] Icy Hot 1 applic TOPICAL DAILY PRN 08/26/24 08/26/24 History Melatonin 10 mg PO HS 08/26/24 08/26/24 History Varenicline [Chantix Continuing 1 mg PO BID 08/26/24 08/26/24 History Pack] busPIRone HCl [Buspar] 10 mg PO TID 08/26/24 08/26/24 History Allergies Allergy/AdvReac Type Severity Reaction Status Date / Time phenobarbital AdvReac Hyper Verified 08/26/24 11:09 Physical Exam Vitals: Vital Signs Temp Pulse Resp BP Pulse Ox 08/26/24 09:43 97.6 F 80 20 113/80 99 Intake and Output 08/25/24 08/26/24 08/26/24 22:59 06:59 14:59 Other: Weight 63.503 kg Results 08/26/24 10:01 08/26/24 10:01 Cardiac Enzymes 08/26/24 08/26/24 Range/Units 10:01 10:01 AST 16 (14-36) U/L Troponin I <0.012 (0.000-0.034) ng/mL Coagulation 08/26/24 Range/Units 10:01 PT 10.4 (10.0-12.5) sec APTT 23.9 (22.0-30.0) sec CBC 08/26/24 Range/Units 10:01 WBC 5.4 (3.8-10.6) k/uL RBC 4.34 (3.80-5.40) m/uL Hgb 12.1 (11.4-16.0) gm/dL Hct 35.4 (34.0-46.0) % Plt Count 196 (150-450) k/uL Comprehensive Metabolic Panel 08/26/24 Range/Units 10:01 Sodium 136 L (137-145) mmol/L Potassium 4.5 (3.5-5.1) mmol/L Chloride 106 (98-107) mmol/L Carbon Dioxide 24 (22-30) mmol/L BUN 11 (7-17) mg/dL Creatinine 0.68 (0.52-1.04) mg/dL Glucose 170 H (74-99) mg/dL Calcium 9.1 (8.4-10.2) mg/dL AST 16 (14-36) U/L ALT 11 (4-34) U/L Alkaline Phosphatase 77 (38-126) U/L Total Protein 6.0 L (6.3-8.2) g/dL Albumin 3.7 (3.5-5.0) g/dL Current Medications Generic Name Dose Route Start Last Admin Trade Name Freq PRN Reason Stop Dose Admin Aspirin 325 mg 08/27/24 09:00 Aspirin 325 Mg Tab PO DAILY SHANNA Nitroglycerin 0.4 mg 08/26/24 11:36 Nitroglycerin Sl Tabs 0.4 Mg Tab SUBLINGUAL Q5M PRN Chest Pain Nitroglycerin 1 inch 08/26/24 12:00 Nitroglycerin Oint 1 Inch/Gm Packet TOPICAL Q6HR SHANNA Intake and Output 08/25/24 08/26/24 08/26/24 22:59 06:59 14:59 Other: Weight 63.503 kg Patient Weight 08/27/24 06:59 Weight 63.503 kg 08/26/24 10:01 08/26/24 10:01
[2024-08-26] MEDS ORDERED: traZODone HCL 100 MG TAB PO PRN (15:09)
[2024-08-26] MEDS ORDERED: DEXTROSE 50% SYRINGE 50 ML IVP PRN ×2 (15:10)
--- NOTE | 2024-08-26 15:14 | P.HPIM ---
History of Present Illness H&P Date: 08/26/24 54 year old F with PMH of CAD with CABG and stenting, crack cocaine abuse last used Aug 16, DM, HTN, HLD, nicotine abuse presents to the ED from [place] for chest pain. Chest pain started at 8:15 AM as she was sitting at group therapy. Pain is left sided with no radiation described as pressure like in nature. She reports that nitro helped. Associated with shortness of breath. She reports episodes on nausea and vomiting along with heartburn over the past 2 days. Per patient she has been out of her home medications for the past 3 weeks. In the ED she underwent extensive evaluation. BP 113/80, HR 80, T 97.6F, RR 20, 99% on RA. CBC, Coag panel, CMP significant for Na 136, glu 170, total protein 6. Troponin < 0.012. Mag 1.4. EKG sinus rhythm with PVC and left anterior fascicular block. CXR chronic changes without acute process. Patient is admitted for further workup and management. General: non toxic, no distress, appears at stated age Derm: warm, dry Head: atraumatic, normocephalic, symmetric Eyes: EOMI, no lid lag, anicteric sclera Mouth: no lip lesion, mucus membranes moist Cardiovascular: S1S2 reg, no murmur Lungs: CTA bilateral, no rhonchi, no rales , no accessory muscle use Ext: no gross muscle atrophy, no edema, no contractures Neuro: no focal neuro deficits Psych: Alert, oriented, appropriate affect Based on my assessment of this patient, this patient meets a high complexity level of care. Chest pain with history of CAD with stenting and CABG: Trend Trop/EKG to rule out ACS. ASA 81 mg PO QD. Lipitor 80 mg PO QHS. Plavix 75 mg PO QD. Metoprolol 25 mg PO BID. Nitro ointment Q6H. Telemetry monitoring. Obtain Echo. Cardiology consultation. Hypomagnesemia: 1g Mag sulfate x 1. DM with hyperglycemia: ISS + Acchecks ACHS with hypoglycemic precautions. Hypertension: Imdur 30 mg PO QD. Losartan 25 mg PO QD. Metoprolol as above. Dyslipidemia: Lipitor as above. Nicotine abuse: Chantix 1 mg PO BID. Crack cocaine abuse: Advised to quit. Plans for [place] on discharge. CODE STATUS: FULL CODE. DVT Prophylaxis: Lovenox SQ GI Prophylaxis: Designated medical POA if patient is not able to make medical decisions for themselves: I have reviewed the following workforce management consultant notes: ED note. I have reviewed the results of the following tests: As above. I have ordered the following tests: As above. I have discussed the care of this patient with the following independent historian: I have independently interpreted the following test below: CXR. I have discussed the management of this patient with the following physician: Dr. Mix Past Medical History Past Medical History: Chest Pain / Angina, Diabetes Mellitus, Hypertension, Myocardial Infarction ([place]) Additional Past Medical History / Comment(s): DM2. Last Myocardial Infarction Date:: 2018 History of Any Multi-Drug Resistant Organisms: None Reported Past Surgical History: Coronary Bypass/CABG, Heart Catheterization, Heart Catheterization With Stent, Orthopedic Surgery Additional Past Surgical History / Comment(s): bypass 2013, last stent 2016. right carpal tunnel. Past Anesthesia/Blood Transfusion Reactions: No Reported Reaction Date of Last Stent Placement:: 2016 Past Psychological History: Anxiety, Bipolar, Depression Smoking Status: Current every day smoker Past Alcohol Use History: None Reported Past Drug Use History: Cocaine - Past Family History Father Additional Family Medical History / Comment(s): Father had heart "problems". He is . Mother Family Medical History: Coronary Artery Disease (CAD) Additional Family Medical History / Comment(s): Mother during a heart procedure. Medications and Allergies Home Medications Medication Instructions Recorded Confirmed Type Isosorbide Mononitrate ER [Imdur] 30 mg PO DAILY 12/03/20 08/26/24 History Nitroglycerin Sl Tabs [Nitrostat] 0.4 mg SL Q5M PRN 12/03/20 08/26/24 History Metoprolol Tartrate [Lopressor] 25 mg PO BID 09/22/22 08/26/24 History traZODone HCL [Desyrel] 100 - 300 mg PO HS PRN 12/07/22 08/26/24 History Losartan [Cozaar] 25 mg PO DAILY 07/02/24 08/26/24 History Acetaminophen Tab [Tylenol] 650 mg PO Q4H PRN 08/26/24 08/26/24 History Aspirin 650 mg PO Q4H PRN 08/26/24 08/26/24 History Aspirin [[place] Aspirin EC] 81 mg PO DAILY 08/26/24 08/26/24 History Atorvastatin [Lipitor] 80 mg PO HS 08/26/24 08/26/24 History Calcium Phos/D3/Magnesium/Zinc 1 tab PO TID PRN 08/26/24 08/26/24 History [[place]-Ivz-Kwxh-Vitamin D3] Clopidogrel [Plavix] 75 mg PO DAILY 08/26/24 08/26/24 History Empagliflozin/Metformin HCl 1 tab PO DAILY 08/26/24 08/26/24 History [Synjardy Xr 25-1,000 mg Tablet] Icy Hot 1 applic TOPICAL DAILY PRN 08/26/24 08/26/24 History Melatonin 10 mg PO HS 08/26/24 08/26/24 History Varenicline [Chantix Continuing 1 mg PO BID 08/26/24 08/26/24 History Pack] busPIRone HCl [Buspar] 10 mg PO TID 08/26/24 08/26/24 History Allergies Allergy/AdvReac Type Severity Reaction Status Date / Time phenobarbital AdvReac Hyper Verified 08/26/24 11:09 Physical Exam Vitals: Vital Signs Temp Pulse Resp BP Pulse Ox 08/26/24 13:11 85 18 161/99 99 08/26/24 09:43 97.6 F 80 20 113/80 99 Intake and Output 08/26/24 08/26/24 08/26/24 06:59 14:59 22:59 Other: Weight 63.503 kg Results CBC & Chem 7: 08/26/24 10:01 08/26/24 10:01 Labs: Abnormal Lab Results - Last 24 Hours (Table) 08/26/24 Range/Units 10:01 Sodium 136 L (137-145) mmol/L Glucose 170 H (74-99) mg/dL Magnesium 1.4 L (1.6-2.3) mg/dL Total Protein 6.0 L (6.3-8.2) g/dL
[2024-08-26] MEDS ORDERED: ONDANSETRON 4 MG/2 ML VIAL IVP PRN (15:16)
[2024-08-26] MEDS ORDERED: CALCIUM CARBONATE 500 MG CHEWABLE PO PRN (15:16)
[2024-08-26] MEDS: PANTOPRAZOLE 40 MG TABLET PO SCH (15:28)
[2024-08-26] MEDS: busPIRone HCl 10 MG TAB PO SCH (15:28)
[2024-08-26 16:48] LABS: Glucose,Whole Blood 123 mg/dL (70-110)
[2024-08-26] MEDS: INSULIN ASPART (NovoLOG) 100 UNIT/ML VIAL SQ SCH (16:50)
[2024-08-26 20:42] LABS: Glucose,Whole Blood 150 mg/dL (70-110)
[2024-08-26] MEDS: ATORVASTATIN 80 MG TAB PO SCH (21:47)
[2024-08-26] MEDS: VARENICLINE 1 MG TAB PO SCH (21:48)
[2024-08-27 07:37] LABS: Glucose,Whole Blood 164 mg/dL (70-110)
[2024-08-27 07:40] VITALS: RESP 18
[2024-08-27 08:39] LABS: Chol/HDL Ratio 3.82 Ratio; LDL Cholesterol,Calculated 46.9 mg/dL (0.0-131.0)
[2024-08-27] MEDS: LOSARTAN 25 MG TAB PO SCH (08:55)
[2024-08-27] MEDS: ASPIRIN 81 MG PO SCH (08:55)
[2024-08-27] MEDS: ENOXAPARIN 40 MG/0.4 ML SYRINGE SQ SCH (08:56)
[2024-08-27] MEDS ORDERED: ASPIRIN 325 MG TAB PO SCH (09:00)
--- NOTE | 2024-08-27 12:57 | CA ---
Transthoracic Echo Report Name: Arelis Banegas Age: 54 Gender: F : 1970 Exam Date: 08/27/2024 08:32 Exam Location: [place] [facility] Ht (in): 64 Wt (lb): 140 Ordering Physician: Melissa Morrison Attending/Referring Phys: [id number], [facility] [employer] Rebecca Love, LYNETTE Procedure CPT: Indications: LVF Cardiac Hx: Technical Quality: Fair Contrast 1: Total Dose (mL): Contrast 2: Total Dose (mL): MEASUREMENTS (Male / Female) Normal Values 2D ECHO LV Diastolic Diameter PLAX 4.9 cm 4.2 - 5.9 / 3.9 - 5.3 cm LV Systolic Diameter PLAX 3.1 cm IVS Diastolic Thickness 1.1 cm 0.6 - 1.0 / 0.6 - 0.9 cm LVPW Diastolic Thickness 1.0 cm 0.6 - 1.0 / 0.6 - 0.9 cm LV Relative Wall Thickness 0.4 RV Internal Dim ED PLAX 3.1 cm LA Systolic Diameter LX 3.7 cm 3.0 - 4.0 / 2.7 - 3.8 cm LV Diastolic Volume MOD BP 94.6 cm??? 67 - 155 / 56 - 104 cm??? LV Systolic Volume MOD BP 41.9 cm??? - / 19 - 49 cm??? LV Ejection Fraction MOD BP 55.7 % >= 55 % LV Cardiac Index MOD BP 2414.4 cm???/min???m??? LV Diastolic Volume MOD 4C 97.0 cm??? LV Systolic Volume MOD 4C 43.3 cm??? LV Ejection Fraction MOD 4C 55.4 % LV Cardiac Index MOD 4C 2461.8 cm???/min???m??? LV Diastolic Length 4C 7.7 cm LV Systolic Length 4C 6.4 cm LV Diastolic Volume MOD 2C 87.6 cm??? LV Systolic Volume MOD 2C 37.9 cm??? LV Ejection Fraction MOD 2C 56.8 % LV Cardiac Index MOD 2C 2278.8 cm???/min???m??? LV Diastolic Length 2C 8.3 cm LV Systolic Length 2C 7.0 cm LA Volume 49.8 cm??? 18 - 58 / 22 - 52 cm??? LA Volume Index 29.2 cm???/m??? 16 - 28 cm???/m??? M-MODE Aortic Root Diameter MM 3.3 cm AV Cusp Separation MM 2.0 cm DOPPLER AV Peak Velocity 124.4 cm/s AV Peak Gradient 6.2 mmHg MV Area PHT 3.0 cm??? Mitral E Point Velocity 89.8 cm/s Mitral A Point Velocity 126.5 cm/s Mitral E to A Ratio 0.7 MV Deceleration Time 255.8 ms FINDINGS Left Ventricle Left ventricular ejection fraction is estimated at 55 %. Mildly increased septal wall thickness. No obvious regional wall motion abnormalities. Right Ventricle Normal right ventricular size. Reduced right ventricular global systolic function. Unable to estimate the right ventricular systolic pressure. Right Atrium Normal right atrial size. No right atrial thrombus or mass seen. Left Atrium Mildly increased left atrial volume. No left atrial thrombus or mass present. Mitral Valve Mitral valve thickened. Mild mitral annular calcification. No mitral stenosis, regurgitation or prolapse. Aortic Valve Trileaflet aortic valve. Thickened aortic valve without stenosis. No aortic regurgitation. Tricuspid Valve Structurally normal tricuspid valve. No tricuspid stenosis, regurgitation or prolapse. Pulmonic Valve Structurally normal pulmonic valve. No pulmonic regurgitation. Pericardium No pericardial or pleural effusion. Aorta Normal size aortic root and proximal ascending aorta. CONCLUSIONS Left ventricular ejection fraction 55% Mildly increased left ventricle wall thickness Mild mitral calcification No pericardial effusion Previewed by: Dr. Ramin Palacios DO (Electronically Signed) Final Date: 27 August 2024 12:56
--- NOTE | 2024-08-27 13:42 | P.DS ---
Providers Date of admission: 08/26/24 11:36 Expected date of discharge: 08/27/24 Attending physician: Catalina Huertas MD Consults: 08/26/24 11:36 Consult Physician Urgent Consulting Provider: [facility] Consult Reason/Comments: Chest pain Do you want consulting provider notified?: Yes Primary care physician: Physician Nonstaff Hospital Course: Discharge Diagnosis: Chest pain, acute coronary event ruled out. Troponins trended all negative at less than 0.012 x 3 draws. EKG showing normal sinus mechanism. Echocardiogram showing preserved EF of 55% with mildly increased left ventricular wall thickness, mild mitral calcification, and no pericardial effusion. Patient cleared from cardiac perspective recommending outpatient follow-up with her primary vegetable buncher upon discharge from [facility]. No medication changes were made during this admission. Patient to continue aspirin 81 mg daily, atorvastatin 80 mg nightly, metoprolol 25 mg twice daily, isosorbide mononitrate 30 mg daily, Plavix 75 mg daily, losartan 25 mg daily, and as needed sublingual nitroglycerin tablets. Patient to follow-up outpatient with PCP and cardiology upon discharge from [facility]. Patient medically optimized for return to [facility] for drug/alcohol rehab. Patient strongly advised against future use of cocaine, especially with extensive cardiac history. History of CAD status post CABG x 5 followed by stent placement. Hypertension Hyperlipidemia. Crack cocaine use/abuse. Qkm-gcrwnjm-qsfomavnn diabetes mellitus. Nicotine dependence Hypomagnesemia, replaced Hospital Course: Patient is a 54-year-old female with a past medical history of CAD status post CABG x 5 followed by stent placement, hypertension, hyperlipidemia, jot-qyvylhz-yjabvcllp diabetes mellitus, nicotine dependence, anxiety with depression, bipolar disorder, and cocaine use disorder. Patient currently in rehab at [facility] and presented to our facility on 08/26/2024 secondary to reports of chest pain. Patient reported she had been experiencing some nausea and vomiting and indigestion over the past couple days at rehab and developed an episode of chest pain and was sent to our facility for evaluation. Upon arrival to our facility patient underwent evaluation in the emergency department. Vital signs upon arrival show blood pressure 113/80, heart rate 80, respiratory rate 20, temp 97.6 F, and SpO2 of 99% on room air. EKG completed showing normal sinus rhythm with occasional PVC at 76 bpm. Chest x-ray negative for acute cardiopulmonary process. Labs completed and reviewed. CBC unremarkable. Coagulation profile normal findings. BMP showing no significant abnormalities. Blood glucose 170. Liver profile unremarkable. Troponin was negative at less than 0.012. Patient was admitted under our services with consultation to cardiology. Troponins trended overnight all negative at less than 0.012 x 3 draws.. EKG showing normal sinus mechanism. Echocardiogram showing preserved EF of 55% with mildly increased left ventricular wall thickness, mild mitral calcification, and no pericardial effusion. Patient cleared from cardiac perspective recommending outpatient follow-up with her primary vegetable buncher upon discharge from [facility]. No medication changes were made during this admission. Patient to continue aspirin 81 mg daily, atorvastatin 80 mg nightly, metoprolol 25 mg twice daily, isosorbide mononitrate 30 mg daily, Plavix 75 mg daily, losartan 25 mg daily, and as needed sublingual nitroglycerin tablets. Patient to follow-up outpatient with PCP and cardiology upon discharge from [facility]. Patient medically optimized for return to [facility] for drug/alcohol rehab. Patient strongly advised against future use of cocaine, especially with extensive cardiac history. Physical exam: Vital signs reviewed and stable. General: Nontoxic, no distress and appears stated age. Derm: Skin warm and dry, normal coloration for ethnicity. Head: Atraumatic, normocephalic and symmetric. Eyes: EOM's intact, no lid lag, and anicteric sclera Mouth: no lip lesions, mucus membranes moist Cardiovascular: regular rate and rhythm with normal S1S2, soft systolic murmur, positive posterior tibial pulses bilaterally, and cap refill < 2 seconds. Lungs: Respirations even, regular, and unlabored on room air. Lungs CTA bilaterally, no rhonchi, no rales, no wheezing, and no accessory muscle usage. Abdominal: soft, nontender to palpation, no guarding, no appreciable organomegaly Ext: ROM intact. No gross muscle atrophy, no edema, no contractures Neuro: Speech clear, face symmetrical and CN II-XII grossly intact with no noted focal neuro deficits Psych: Alert and oriented to person, place, time, and situation. Appropriate and pleasant affect. A total of 34 minutes of time were spent preparing this complex discharge summary. Pt was discharged on 08/27/2024 at 1:38 PM. Patient was seen independently by Nurse Practitioner. This document was prepared using [employer] dictation software. Please allow for er rors in director pharmacology while rare they do occur. Jaden Rodríguez NP rendered care for this patient independently, reviewed the findings and plan as documented in the note above. I did not physically speak with or examine the patient on this date. Patient Condition at Discharge: Stable Plan - Discharge Summary New Discharge Prescriptions: Continue Nitroglycerin Sl Tabs [Nitrostat] 0.4 mg SL Q5M PRN PRN Reason: Chest Pain Losartan [Cozaar] 25 mg PO DAILY Acetaminophen Tab [Tylenol] 650 mg PO Q4H PRN PRN Reason: Pain Icy Hot 1 applic TOPICAL DAILY PRN PRN Reason: Pain Calcium Phos/D3/Magnesium/Zinc [Gjycgeo-Pju-Oktc-Vitamin D3] 1 tab PO TID PRN PRN Reason: muscle cramps Empagliflozin/Metformin HCl [Synjardy Xr 25-1,000 mg Tablet] 1 tab PO DAILY Clopidogrel [Plavix] 75 mg PO DAILY Isosorbide Mononitrate ER [Imdur] 30 mg PO DAILY Metoprolol Tartrate [Lopressor] 25 mg PO BID traZODone HCL [Desyrel] 100 - 300 mg PO HS PRN PRN Reason: Insomnia Varenicline [Chantix Continuing Pack] 1 mg PO BID Melatonin 10 mg PO HS busPIRone HCl [Buspar] 10 mg PO TID Atorvastatin [Lipitor] 80 mg PO HS Aspirin [Brown Aspirin EC] 81 mg PO DAILY Discontinued Aspirin 650 mg PO Q4H PRN PRN Reason: Pain Discharge Medication List Isosorbide Mononitrate ER [Imdur] 30 mg PO DAILY 12/03/20 [History] Nitroglycerin Sl Tabs [Nitrostat] 0.4 mg SL Q5M PRN 12/03/20 [History] Metoprolol Tartrate [Lopressor] 25 mg PO BID 09/22/22 [History] traZODone HCL [Desyrel] 100 - 300 mg PO HS PRN 12/07/22 [History] Losartan [Cozaar] 25 mg PO DAILY 07/02/24 [History] Acetaminophen Tab [Tylenol] 650 mg PO Q4H PRN 08/26/24 [History] Aspirin [Brown Aspirin EC] 81 mg PO DAILY 08/26/24 [History] Atorvastatin [Lipitor] 80 mg PO HS 08/26/24 [History] Calcium Phos/D3/Magnesium/Zinc [Aigezmg-Caz-Qrff-Vitamin D3] 1 tab PO TID PRN 08/26/24 [History] Clopidogrel [Plavix] 75 mg PO DAILY 08/26/24 [History] Empagliflozin/Metformin HCl [Synjardy Xr 25-1,000 mg Tablet] 1 tab PO DAILY 08/26/24 [History] Icy Hot 1 applic TOPICAL DAILY PRN 08/26/24 [History] Melatonin 10 mg PO HS 08/26/24 [History] Varenicline [Chantix Continuing Pack] 1 mg PO BID 08/26/24 [History] busPIRone HCl [Buspar] 10 mg PO TID 08/26/24 [History] Follow up Appointment(s)/Referral(s): [facility] [NON-STAFF] - 1 Week (Please call and schedule patient's follow-up appointment prior to discharging patient.) Ramin Palacios DO [STAFF PHYSICIAN] - 1 Week Patient Instructions/Handouts: Chest Pain (DC), Medical Clearance for Substance Abuse Treatment (DC) Activity/Diet/Wound Care/Special Instructions: Pt medically optimized and cleared from cardiology perspective for discharge back to [facility] Activity: As tolerated. Take breaks as needed. Diet: Heart healthy and carb consistent diet. Avoid salts, or foods with hidden salts such as canned or boxed foods and frozen dinners. Extra salt makes your heart work harder and traps the fluid in your body for longer. Special Instructions: Take all of your medications as directed and remember to keep all of your doctor's appointments and follow-up as needed. Thank you for allowing us to participate in your care, it was truly a pleasure having you for our patient!!! . Discharge Disposition: HOME SELF-CARE
[2024-08-27 14:28] VITALS: BP 96/58; PULSE 95; TEMP 98.7
--- NOTE | 2024-08-27 14:31 | P.PN ---
Subjective Progress Note Date: 08/27/24 Consult reason: chest pain History of present illness: This is a 54-year-old female follows with a early morning babysitter in [facility] with history of 5 vessel CABG at age 41 followed by 5 stents placement on most recent stent was placed in May 2024, diabetes mellitus type 2, hypertension, hyperlipidemia, crack cocaine use, tobacco use. Patient presents from [facility] due to chest pain. She states she was sitting at group therapy at [facility] and developed chest pressure. She states she did not have any left arm involvement. It was on the left side of her chest and it felt discomfort and it occurred at rest. She had some difficulty in breathing and some nausea. She states she has vomiting for the last couple of nights but none during the day. She was given nitroglycerin and in 10 minutes the pain went away. Regarding patient's medications, she states she ran out about 3 weeks ago and has not been taking her medications until she went to [facility]. Her last crack cocaine use was on August 16. She states she has been using crack cocaine for 25 years and has been through multiple rehab services. Patient has been instructed to not take a beta-siddhartha if she is doing cocaine. Blood pressure 113/80, heart rate 80, pulse ox 99% on room air. Patient is seen today in the emergency center waiting for a bed on the observation unit. Patient is status post magnesium 1 g IV piggyback, Nitro-Bid and aspirin. -EKG: Sinus rhythm with no acute ST changes. -Chest x-ray: No acute process. -Laboratory studies: CBC, INR normal. Sodium 136, potassium 4.5, BUN 11 creatinine 0.68. Troponin negative x 1. Magnesium 1.4. -Home cardiac medications: Aspirin 81 mg daily, atorvastatin 80 mg at bedtime, Plavix 75 mg daily, Imdur 30 mg daily, losartan 25 mg daily, Lopressor 25 mg twice daily, Nitrostat as needed. 08/27 Patient seen and examined. Patient remains in the emergency center waiting for a bed on the observation unit. Blood pressure 96/58, heart rate 98, pulse ox 98% on room air. Troponins are negative for total of 3 draws. Echocardiogram reveals EF of 55%, mildly increased LV wall thickness, mild mitral calcifica tion, no pericardial effusion. Patient states that she is feeling better today. She states she had 1 episode of chest pain which was a quick jab but that only lasted for seconds. Physical examination: Gen: This is a 54-year-old female in no acute distress VS: reviewed HEENT: Head is atraumatic, normocephalic. Pupils equal, round. Sclerae is anicteric. NECK: Supple. No JVD. LUNGS: Clear to auscultation. No wheezes or rhonchi. No intercostal retractions. HEART: Regular rate and rhythm. No murmur. ABDOMEN: Soft No tenderness. EXTREMITIES: No pedal edema. No calf tenderness. NEUROLOGICAL: Patient is awake, alert and oriented x3. Assessment: Chest pain Hypomagnesemia s/p replacement Known coronary artery disease with previous CABG and stents Diabetes mellitus type 2 Hypertension Hyperlipidemia Crack cocaine use Tobacco use Plan: Continue patient's home cardiac medications Patient is cleared for discharge from cardiology and may follow-up with her primary early morning babysitter in 1 to 2 weeks. Nurse practitioner note has been reviewed, I agree with documented findings and plan of care. Patient was seen and examined. Objective - Vital Signs Vital signs: Vital Signs Temp 97.6 F 08/26/24 09:43 Pulse 98 08/27/24 07:40 Resp 18 08/27/24 07:40 BP 157/95 08/27/24 07:40 Pulse Ox 98 08/27/24 07:40 FiO2 Intake & Output 08/26/24 08/27/24 08/27/24 18:59 06:59 18:59 Weight 63.503 kg - Labs CBC & Chem 7: 08/26/24 10:01 08/26/24 10:01 Labs: Abnormal Lab Results - Last 24 Hours (Table) 08/26/24 08/26/24 08/26/24 Range/Units 10:01 16:47 20:41 Sodium 136 L (137-145) mmol/L Glucose 170 H (74-99) mg/dL POC Glucose (mg/dL) 123 H 150 H (70-110) mg/dL Magnesium 1.4 L (1.6-2.3) mg/dL Total Protein 6.0 L (6.3-8.2) g/dL 08/27/24 Range/Units 07:35 Sodium (137-145) mmol/L Glucose (74-99) mg/dL POC Glucose (mg/dL) 164 H (70-110) mg/dL Magnesium (1.6-2.3) mg/dL Total Protein (6.3-8.2) g/dL
[2024-08-27] MEDS ORDERED: MELATONIN 5 MG TABLET PO SCH (21:00)
== END 2024-08-27 14:30 | disposition home or self-care (01) ==
LOC: EC 09:42 → 6NMEDSUR 11:36
PROVIDERS: ADMIT Family Medicine; ATTEND Family Medicine
DX: R07.9 Chest pain, unspecified (principal); E83.42 Hypomagnesemia; R12 Heartburn; E11.65 Type 2 diabetes mellitus with hyperglycemia; I10 Essential (primary) hypertension; I25.10 Atherosclerotic heart disease of native coronary artery without angina pectoris; F31.9 Bipolar disorder, unspecified; F41.8 Other specified anxiety disorders; E78.5 Hyperlipidemia, unspecified; I25.2 Old myocardial infarction; F14.10 Cocaine abuse, uncomplicated; F17.200 Nicotine dependence, unspecified, uncomplicated; Z95.5 Presence of coronary angioplasty implant and graft; Z79.02 Long term (current) use of antithrombotics/antiplatelets; Z79.82 Long term (current) use of aspirin; Z79.84 Long term (current) use of oral hypoglycemic drugs; Z79.899 Other long term (current) drug therapy; Z82.49 Family history of ischemic heart disease and other diseases of the circulatory system
CPT/HCPCS: 96365; 96372; 99285; 36415; 93005; 93306; 80061; 80053; 83735; 84484; 85025; 85610; 85730; 71046; G0378 ×2; J1650; J3475